=== PATIENT | male | born 1935 | race Asian ===

== ENCOUNTER 2016-10-26 20:27 | Inpatient (IN) | payer MEDICARE, MEDICAID ==
[~2016-10-26] VITALS: Ht 165.1 cm; Wt 93.0 kg
[2016-10-26] MEDS ORDERED: BACL10TA PO (20:55)
[2016-10-26] MEDS ORDERED: FEBU40TA PO (20:55)
[2016-10-26] MEDS ORDERED: DEXL60CA3 PO (20:55)
[2016-10-26] MEDS ORDERED: ZOLP5TAB7 PO (20:55)
[2016-10-26] MEDS ORDERED: ASPI-991 PO (20:55)
[2016-10-26] MEDS ORDERED: DICL50TA9 PO (20:55)
[2016-10-26] MEDS ORDERED: METO-304 PO (20:55)
[2016-10-26] MEDS ORDERED: CLOP75TA2 PO (20:55)
[2016-10-26] MEDS ORDERED: NITR0.4T SL (20:55)
[2016-10-26] MEDS ORDERED: GABA-532 PO (20:55)
[2016-10-26] MEDS ORDERED: DOXA4TAB3 PO (20:55)
[2016-10-26] MEDS ORDERED: ISOS30TA6 PO (20:55)
[2016-10-26] MEDS ORDERED: OLME1TAB32 PO (20:55)
[2016-10-26 20:57] LABS: BASOPHILS % (AUTO) 0.5 % (0.0-2.0); DIFF TOTAL % 100 %; EOSINOPHILS # (AUTO) 0.3 /CMM (0.0-0.7); EOSINOPHILS % (AUTO) 4.9 % (0.0-6.0); HEMATOCRIT 31 % (39-51); HEMOGLOBIN 10.4 g/dL (13.5-17.5); LYMPHOCYTES # (AUTO) 0.8 /CMM (0.8-4.8); LYMPHOCYTES % (AUTO) 13.6 % (20.0-44.0); MEAN CORPUSCULAR HEMOGLOBIN 33 PG (26.0-33.0); MEAN CORPUSCULAR HGB CONC 34 g/dl (31.0-36.0); MEAN CORPUSCULAR VOLUME 98 fL (80-96); MONOCYTES # (AUTO) 0.6 /CMM (0.1-1.30); MONOCYTES % (AUTO) 9.7 % (2.0-12.0); NEUTROPHILS # (AUTO) 4.2 /CMM (1.8-8.9); NEUTROPHILS % (AUTO) 71.3 % (43.0-81.0); PLATELET COUNT (AUTO) 168 /CMM (150-450); RED BLOOD CELL COUNT(AUTO) 3.14 MIL/uL (4.5-6.0); WHITE BLOOD COUNT (AUTO) 5.9 K/uL (4.3-11.0)
[2016-10-26] MEDS ORDERED: IV NS 0.9% 1,000 ML BAG IV ONE (21:00)
[2016-10-26] MEDS ORDERED: IV SET PRIMARY 1 EA INFUS.SET MC ONE (21:11)
[2016-10-26] MEDS ORDERED: IV NS 0.9% 1,000 ML ONE (21:11)
[2016-10-26 21:13] LABS: ALBUMIN 3.3 g/dL (3.4-5.0); BILIRUBIN,DIRECT 0.1 mg/dL (0.0-0.2); BILIRUBIN,TOTAL 0.4 mg/dL (0.2-1.0); CALCIUM, SERUM 8.3 mg/dL (8.5-10.1); INDIRECT BILIRUBIN 0.3 mg/dL (0.0-1.1); POTASSIUM 4.3 mmol/L (3.5-5.1); TOTAL PROTEIN, SERUM 6.7 g/dL (6.4-8.2)
[2016-10-26 21:15] LABS: INR 0.93 (0.87-1.13); PROTHROMBIN TIME 9.8 SECS (9.5-12.7); TROPONIN I 0.19 ng/mL (0.00-0.056)
[2016-10-26] MEDS ORDERED: ASPIRIN 325 MG TABLET ONE (21:45)
[2016-10-26] MEDS ORDERED: ASPIRIN 325 MG TABLET PO ONE (22:00)
[2016-10-26 22:29] LABS: KETONES,URINE NEGATIVE (NEGATIVE); LEUKOCYTE ESTERASE ,URINE NEGATIVE (NEGATIVE); PH,URINE 5.5 (5.0-8.0)
[2016-10-26 22:46] LABS: ADD UA MICROSCOPIC YES
[2016-10-26 22:48] LABS: ADD URINE CULTURE NO; RBC,URINE NONE SEEN /HPF (0-2); WBC,URINE NONE SEEN /HPF (0-3)
[2016-10-27] VITALS (19 sets, daily range): BP systolic 66–161; BP diastolic 57–87
[2016-10-27] MEDS ORDERED: ZOLPIDEM TARTRATE 5 MG TABLET PO PRN (02:00)
[2016-10-27] MEDS ORDERED: Z GUARD REMEDY 2 OZ OINT TP PRN (02:00)
[2016-10-27] MEDS ORDERED: IV NS 0.9% 1,000 ML BAG IV ONE (02:00)
[2016-10-27] MEDS ORDERED: HYDROCODONE/APAP 5/325MG 1 EACH TABLET PO PRN (02:00)
[2016-10-27] MEDS ORDERED: ACETAMINOPHEN 325 MG TABLET PO PRN (02:00)
[2016-10-27] MEDS ORDERED: MAG HYDROX/AL HYDROX/SIMETH 30 ML UDC PO PRN (02:00)
[2016-10-27] MEDS ORDERED: MAGNESIUM HYDROXIDE 30 ML UDC PO PRN (02:00)
[2016-10-27] MEDS ORDERED: IV SET PRIMARY PUMP SET 1 EA INFUS.SET MC ONE ×4 (05:58→22:31)
[2016-10-27] MEDS ORDERED: IV NS 0.9% 1,000 ML ONE (05:58)
[2016-10-27] MEDS ORDERED: IV NS 0.9% 1,000 ML IV PRN (12:30)
[2016-10-27 12:53] LABS: THYROID STIMULATING HORMONE 0.66 uIU/mL (0.358-3.74)
[2016-10-27] MEDS: ATORVASTATIN 10 MG TABLET PO SCH (13:09)
[2016-10-27] MEDS: CARVEDILOL 3.125 MG TABLET PO SCH ×2 (13:10→22:06)
[2016-10-27] MEDS: LORAZEPAM INJ 2 MG/ML VIAL IV PRN ×2 (16:20→19:37)
[2016-10-27 16:21] LABS: CREATININE, URINE 77.5 MG/DL (30.0-125.0); URINE TOTAL PROTEIN 53.5 mg/dL (0-11.9)
[2016-10-27 16:22] LABS: KETONES,URINE NEGATIVE (NEGATIVE); LEUKOCYTE ESTERASE ,URINE NEGATIVE (NEGATIVE)
[2016-10-27 16:31] LABS: ADD UA MICROSCOPIC YES
[2016-10-27 16:42] LABS: ADD URINE CULTURE NO; WBC,URINE NONE SEEN /HPF (0-3)
[2016-10-27 17:48] LABS: ABG BASE EXCESS -11.4 mmol/L; ABG HCO3 19.4 mmol/L; ABG PO2 157.6 mmHg (75.0-100.0); ABG TOTAL HEMOGLOBIN 11.4 G/dL (13.5-18.0); AaDO2 339.3 mmHg
[2016-10-27] MEDS ORDERED: SUCCINYLCHOLINE CHLORIDE 20 MG/ML VIAL IV ONE (18:00)
[2016-10-27] MEDS ORDERED: ETOMIDATE 2 MG/ML VIAL IV ONE (18:00)
[2016-10-27] MEDS: PROPOFOL 100 ML IV PRN ×2 (18:32→22:59)
[2016-10-27] MEDS: methylPREDNISolone SOD SUCC 125 MG/2ML VIAL IV SCH ×2 (19:01→23:27)
[2016-10-27 19:55] LABS: BASOPHILS # (AUTO) 0.1 /CMM (0.0-0.2); BASOPHILS % (AUTO) 0.6 % (0.0-2.0); DIFF TOTAL % 100 %; EOSINOPHILS # (AUTO) 0.2 /CMM (0.0-0.7); EOSINOPHILS % (AUTO) 1.6 % (0.0-6.0); HEMATOCRIT 33 % (39-51); HEMOGLOBIN 10.9 g/dL (13.5-17.5); LYMPHOCYTES # (AUTO) 0.4 /CMM (0.8-4.8); LYMPHOCYTES % (AUTO) 3.8 % (20.0-44.0); MEAN CORPUSCULAR HEMOGLOBIN 33 PG (26.0-33.0); MEAN CORPUSCULAR HGB CONC 33 g/dl (31.0-36.0); MEAN CORPUSCULAR VOLUME 100 fL (80-96); MONOCYTES # (AUTO) 0.5 /CMM (0.1-1.30); MONOCYTES % (AUTO) 4.6 % (2.0-12.0); NEUTROPHILS # (AUTO) 8.6 /CMM (1.8-8.9); NEUTROPHILS % (AUTO) 89.4 % (43.0-81.0); PLATELET COUNT (AUTO) 160 /CMM (150-450); RED BLOOD CELL COUNT(AUTO) 3.28 MIL/uL (4.5-6.0); WHITE BLOOD COUNT (AUTO) 9.8 K/uL (4.3-11.0)
[2016-10-27] MEDS: IPRATROPIUM NEB FS 0.5 MG/2.5 ML AMPUL.NEB NEB SCH ×2 (20:09→23:27)
[2016-10-27] MEDS: ALBUTEROL FS 2.5 MG/0.5 ML VIAL.NEB NEB SCH ×2 (20:09→23:27)
[2016-10-27 20:20] LABS: CALCIUM, SERUM 8.1 mg/dL (8.5-10.1); CREATININE 2.6 mg/dL (0.6-1.3); POTASSIUM 5.4 mmol/L (3.5-5.1)
[2016-10-27 20:28] LABS: TROPONIN I 0.162 ng/mL (0.00-0.056)
[2016-10-27 20:30] LABS: LACTIC ACID 0.8 mmol/L (0.4-2.0)
[2016-10-27] MEDS ORDERED: IV NS 0.9% 1,000 ML IV ONE (21:00)
[2016-10-27] MEDS ORDERED: IV NS 0.9% 500 ML IV ONE (21:30)
[2016-10-27] MEDS ORDERED: IV NS 0.9% 1,000 ML IV SCH (22:00)
[2016-10-28] VITALS (50 sets, daily range): BP systolic 100–149; BP diastolic 51–77
[2016-10-28] MEDS: IPRATROPIUM NEB FS 0.5 MG/2.5 ML AMPUL.NEB NEB SCH ×6 (02:44→23:51)
[2016-10-28] MEDS: ALBUTEROL FS 2.5 MG/0.5 ML VIAL.NEB NEB SCH ×6 (02:44→23:51)
[2016-10-28] MEDS: PROPOFOL 100 ML IV PRN ×4 (03:40→18:34)
[2016-10-28 05:01] LABS: BASOPHILS % (AUTO) 0.1 % (0.0-2.0); DIFF TOTAL % 100 %; HEMATOCRIT 30 % (39-51); HEMOGLOBIN 9.9 g/dL (13.5-17.5); LYMPHOCYTES # (AUTO) 0.3 /CMM (0.8-4.8); LYMPHOCYTES % (AUTO) 4.3 % (20.0-44.0); MEAN CORPUSCULAR HEMOGLOBIN 33 PG (26.0-33.0); MEAN CORPUSCULAR HGB CONC 33 g/dl (31.0-36.0); MEAN CORPUSCULAR VOLUME 100 fL (80-96); MONOCYTES % (AUTO) 0.2 % (2.0-12.0); NEUTROPHILS # (AUTO) 6.3 /CMM (1.8-8.9); NEUTROPHILS % (AUTO) 95.4 % (43.0-81.0); PLATELET COUNT (AUTO) 149 /CMM (150-450); RED BLOOD CELL COUNT(AUTO) 3.03 MIL/uL (4.5-6.0); WHITE BLOOD COUNT (AUTO) 6.6 K/uL (4.3-11.0)
[2016-10-28 05:16] LABS: BILIRUBIN,TOTAL 0.4 mg/dL (0.2-1.0); CREATININE 2.6 mg/dL (0.6-1.3); POTASSIUM 5.3 mmol/L (3.5-5.1); TOTAL PROTEIN, SERUM 6.2 g/dL (6.4-8.2)
[2016-10-28] MEDS: methylPREDNISolone SOD SUCC 125 MG/2ML VIAL IV SCH ×3 (05:33→17:22)
[2016-10-28] MEDS ORDERED: IV NS 0.9% 1,000 ML ONE (07:05)
[2016-10-28] MEDS: ATORVASTATIN 10 MG TABLET PO SCH (08:04)
[2016-10-28] MEDS: IV NS 0.9% 1,000 ML IV PRN ×2 (08:05→16:27)
[2016-10-28] MEDS ORDERED: IV SET PRIMARY PUMP SET 1 EA INFUS.SET MC ONE ×2 (08:18→19:35)
[2016-10-28 08:46] LABS: ABG BASE EXCESS -8.6 mmol/L; ABG HCO3 15.8 mmol/L; ABG PCO2 29.1 mmHg (35.0-45.0); ABG PH 7.352 (7.350-7.450); ABG TOTAL HEMOGLOBIN 10.9 G/dL (13.5-18.0); ALLEN TEST Pass; AaDO2 148.7 mmHg; O2Hb 95.9 % (94.0-97.0)
[2016-10-28] MEDS ORDERED: PIPERACILLIN /TAZOBACTAM 3.375 G in IV D5W 50 ML IV SCH (09:30)
[2016-10-28] MEDS ORDERED: SECONDARY IV SET 1 EA INFUS.SET MC ONE (10:31)
[2016-10-28] MEDS: PIPERACILLIN /TAZOBACTAM 2.25 G in IV D5W 50 ML IV SCH ×2 (10:37→18:00)
[2016-10-28 10:53] LABS: LACTIC ACID 1.6 mmol/L (0.4-2.0)
[2016-10-28 10:55] LABS: SALICYLATE 1.6 mg/dL (2.8-20.0)
[2016-10-28] MEDS: RENAL NOVASOURCE 1,000 ML BOTTLE GT PRN (13:08)
[2016-10-28] MEDS ORDERED: methylPREDNISolone SOD SUCC 125 MG/2ML VIAL IV SCH (18:00)
[2016-10-28 21:53] LABS: KETONES,URINE NEGATIVE (NEGATIVE); LEUKOCYTE ESTERASE ,URINE NEGATIVE (NEGATIVE)
[2016-10-28 21:55] LABS: ADD UA MICROSCOPIC YES
[2016-10-28 22:19] LABS: ADD URINE CULTURE NO; RBC,URINE 0-2 /HPF (0-2); WBC,URINE 0-2 /HPF (0-3)
[2016-10-29] VITALS (52 sets, daily range): BP systolic 115–136; BP diastolic 58–83
[2016-10-29] MEDS: PIPERACILLIN /TAZOBACTAM 2.25 G in IV D5W 50 ML IV SCH ×5 (00:02→23:23)
[2016-10-29] MEDS: PROPOFOL 100 ML IV PRN ×6 (00:02→23:29)
[2016-10-29] MEDS: methylPREDNISolone SOD SUCC 125 MG/2ML VIAL IV SCH ×5 (00:04→23:23)
[2016-10-29] MEDS: IPRATROPIUM NEB FS 0.5 MG/2.5 ML AMPUL.NEB NEB SCH ×5 (04:06→20:16)
[2016-10-29] MEDS: ALBUTEROL FS 2.5 MG/0.5 ML VIAL.NEB NEB SCH ×5 (04:06→20:16)
[2016-10-29 04:46] LABS: BASOPHILS # (AUTO) 0.1 /CMM (0.0-0.2); BASOPHILS % (AUTO) 0.7 % (0.0-2.0); DIFF TOTAL % 100 %; HEMATOCRIT 29 % (39-51); HEMOGLOBIN 9.6 g/dL (13.5-17.5); LYMPHOCYTES # (AUTO) 0.2 /CMM (0.8-4.8); LYMPHOCYTES % (AUTO) 1.9 % (20.0-44.0); MEAN CORPUSCULAR HEMOGLOBIN 33 PG (26.0-33.0); MEAN CORPUSCULAR HGB CONC 33 g/dl (31.0-36.0); MEAN CORPUSCULAR VOLUME 99 fL (80-96); MONOCYTES # (AUTO) 0.1 /CMM (0.1-1.30); MONOCYTES % (AUTO) 1.2 % (2.0-12.0); NEUTROPHILS # (AUTO) 10.2 /CMM (1.8-8.9); NEUTROPHILS % (AUTO) 96.2 % (43.0-81.0); PLATELET COUNT (AUTO) 143 /CMM (150-450); WHITE BLOOD COUNT (AUTO) 10.6 K/uL (4.3-11.0)
[2016-10-29 05:08] LABS: ALBUMIN 2.7 g/dL (3.4-5.0); BILIRUBIN,TOTAL 0.3 mg/dL (0.2-1.0); CALCIUM, SERUM 7.6 mg/dL (8.5-10.1); CREATININE 2.6 mg/dL (0.6-1.3); PHOSPHORUS 3.7 mg/dL (2.5-4.9); POTASSIUM 4.7 mmol/L (3.5-5.1); TOTAL PROTEIN, SERUM 5.7 g/dL (6.4-8.2)
[2016-10-29] MEDS: PANTOPRAZOLE 40 MG/PACK PACK NG SCH (08:53)
[2016-10-29] MEDS: ATORVASTATIN 10 MG TABLET PO SCH (08:53)
[2016-10-29] MEDS ORDERED: PANTOPRAZOLE 40 MG VIAL IV SCH (09:00)
[2016-10-29] MEDS ORDERED: IV SET PRIMARY PUMP SET 1 EA INFUS.SET MC ONE ×2 (09:32→20:16)
[2016-10-29] MEDS ORDERED: IV NS 0.9% 250 ML IV ONE (17:28)
[2016-10-29] MEDS: RENAL NOVASOURCE 1,000 ML BOTTLE GT PRN (17:40)
[2016-10-30] VITALS (31 sets, daily range): BP systolic 128–151; BP diastolic 56–83
[2016-10-30] MEDS: IPRATROPIUM NEB FS 0.5 MG/2.5 ML AMPUL.NEB NEB SCH ×7 (00:22→23:39)
[2016-10-30] MEDS: ALBUTEROL FS 2.5 MG/0.5 ML VIAL.NEB NEB SCH ×7 (00:22→23:38)
[2016-10-30] MEDS: PROPOFOL 100 ML IV PRN ×2 (03:48→07:11)
[2016-10-30] MEDS: ONDANSETRON HCL/PF 4 MG/2 ML VIAL IVP PRN (04:38)
[2016-10-30 04:53] LABS: DIFF TOTAL % 100 %; HEMATOCRIT 31 % (39-51); HEMOGLOBIN 10.2 g/dL (13.5-17.5); LYMPHOCYTES # (AUTO) 0.2 /CMM (0.8-4.8); LYMPHOCYTES % (AUTO) 1.7 % (20.0-44.0); MEAN CORPUSCULAR HEMOGLOBIN 33 PG (26.0-33.0); MEAN CORPUSCULAR HGB CONC 33 g/dl (31.0-36.0); MEAN CORPUSCULAR VOLUME 100 fL (80-96); MONOCYTES # (AUTO) 0.2 /CMM (0.1-1.30); MONOCYTES % (AUTO) 1.7 % (2.0-12.0); NEUTROPHILS # (AUTO) 10.6 /CMM (1.8-8.9); NEUTROPHILS % (AUTO) 96.6 % (43.0-81.0); PLATELET COUNT (AUTO) 131 /CMM (150-450); RED BLOOD CELL COUNT(AUTO) 3.07 MIL/uL (4.5-6.0)
[2016-10-30 05:09] LABS: CALCIUM, SERUM 7.7 mg/dL (8.5-10.1); CREATININE 2.5 mg/dL (0.6-1.3); POTASSIUM 3.9 mmol/L (3.5-5.1)
[2016-10-30] MEDS: methylPREDNISolone SOD SUCC 125 MG/2ML VIAL IV SCH ×4 (05:10→23:49)
[2016-10-30] MEDS: PIPERACILLIN /TAZOBACTAM 2.25 G in IV D5W 50 ML IV SCH ×4 (05:10→23:31)
[2016-10-30] MEDS ORDERED: DC PROPOFOL WHEN EXTUBATED XX PRN (08:00)
[2016-10-30] MEDS: ATORVASTATIN 10 MG TABLET PO SCH (08:31)
[2016-10-30] MEDS: PANTOPRAZOLE 40 MG/PACK PACK NG SCH (08:31)
[2016-10-30 09:31] LABS: ABG BASE EXCESS -6.5 mmol/L; ABG HCO3 17.4 mmol/L; ABG PCO2 29.6 mmHg (35.0-45.0); ABG PH 7.388 (7.350-7.450); ABG PO2 164.7 mmHg (75.0-100.0); ALLEN TEST Pass; AaDO2 86.5 mmHg; O2Hb 97.1 % (94.0-97.0)
[2016-10-30 14:14] LABS: *SPE ALBUMIN 3.3 g/dL (2.9-4.4)
[2016-10-30] MEDS ORDERED: NITROGLYCERIN 0.4 MG/TAB BOTTLE SL PRN (16:00)
[2016-10-30] MEDS ORDERED: DICLOFENAC SODIUM 50 MG TABLET.DR PO SCH (17:00)
[2016-10-30] MEDS ORDERED: GABAPENTIN 100 MG CAPSULE PO SCH (17:00)
[2016-10-30] MEDS ORDERED: IV NS 0.9% 250 ML IV ONE (20:56)
[2016-10-30] MEDS ORDERED: BACLOFEN (10 MG) 10 MG TABLET PO SCH (22:00)
[2016-10-30] MEDS ORDERED: DOXAZOSIN MESYLATE (4 MG) 4 MG TABLET PO SCH (22:00)
[2016-10-30] MEDS ORDERED: ZOLPIDEM TARTRATE 5 MG TABLET PO SCH (22:00)
[2016-10-30] MEDS ORDERED: ATORVASTATIN 10 MG TABLET NG SCH (23:00)
[2016-10-30] MEDS ORDERED: ACETAMINOPHEN 650 MG/20 ML UDC- FOR SA PATIENTS ONLY NG PRN (23:00)
[2016-10-30] MEDS ORDERED: PANTOPRAZOLE 40 MG VIAL IV SCH (23:00)
[2016-10-30] MEDS ORDERED: MORPHINE SULFATE INJ 2 MG/ML DISP.SYRIN IV PRN (23:00)
[2016-10-30] MEDS ORDERED: METOPROLOL TARTRATE 25 MG TABLET ONE (23:27)
[2016-10-30] MEDS ORDERED: ACETAMINOPHEN 650 MG/20.3 ML UDC ONE (23:31)
[2016-10-30] MEDS: METOPROLOL TARTRATE 25 MG TABLET PO SCH (23:32)
[2016-10-30] MEDS ORDERED: methylPREDNISolone SOD SUCC 125 MG/2ML VIAL ONE (23:45)
[2016-10-30] MEDS ORDERED: LEVOFLOXACIN 250 MG /D5W 50 ML 0 ML IV ONE (23:49)
[2016-10-30] MEDS ORDERED: LEVOFLOXACIN 250 MG /D5W 50 ML 50 ML IV ONE (23:50)
[2016-10-31] VITALS (25 sets, daily range): BP systolic 132–160; BP diastolic 42–102
[2016-10-31] MEDS ORDERED: SECONDARY IV SET 1 EA INFUS.SET MC ONE (00:04)
[2016-10-31] MEDS: LEVOFLOXACIN 250 MG /D5W 50 ML 250 MG in PREMIX 1 EA IV SCH ×2 (00:04→23:24)
[2016-10-31] MEDS: ALBUTEROL FS 2.5 MG/0.5 ML VIAL.NEB NEB SCH ×5 (04:13→19:55)
[2016-10-31] MEDS: IPRATROPIUM NEB FS 0.5 MG/2.5 ML AMPUL.NEB NEB SCH ×5 (04:13→19:55)
[2016-10-31 05:13] LABS: DIFF TOTAL % 100 %; HEMATOCRIT 32 % (39-51); HEMOGLOBIN 10.5 g/dL (13.5-17.5); LYMPHOCYTES # (AUTO) 0.1 /CMM (0.8-4.8); LYMPHOCYTES % (AUTO) 1.2 % (20.0-44.0); MEAN CORPUSCULAR HEMOGLOBIN 33 PG (26.0-33.0); MEAN CORPUSCULAR HGB CONC 33 g/dl (31.0-36.0); MEAN CORPUSCULAR VOLUME 99 fL (80-96); MONOCYTES # (AUTO) 0.2 /CMM (0.1-1.30); MONOCYTES % (AUTO) 2.1 % (2.0-12.0); NEUTROPHILS # (AUTO) 11.3 /CMM (1.8-8.9); NEUTROPHILS % (AUTO) 96.7 % (43.0-81.0); PLATELET COUNT (AUTO) 122 /CMM (150-450); RED BLOOD CELL COUNT(AUTO) 3.17 MIL/uL (4.5-6.0); TROPONIN I 0.282 ng/mL (0.00-0.056); WHITE BLOOD COUNT (AUTO) 11.7 K/uL (4.3-11.0)
[2016-10-31 05:16] LABS: ALBUMIN 2.7 g/dL (3.4-5.0); BILIRUBIN,TOTAL 0.3 mg/dL (0.2-1.0); CALCIUM, SERUM 7.8 mg/dL (8.5-10.1); CREATININE 2.7 mg/dL (0.6-1.3); PHOSPHORUS 4.2 mg/dL (2.5-4.9); POTASSIUM 3.9 mmol/L (3.5-5.1); TOTAL PROTEIN, SERUM 5.6 g/dL (6.4-8.2)
[2016-10-31] MEDS ORDERED: methylPREDNISolone SOD SUCC 125 MG/2ML VIAL ONE (05:24)
[2016-10-31] MEDS: PIPERACILLIN /TAZOBACTAM 2.25 G in IV D5W 50 ML IV SCH ×4 (05:25→23:28)
[2016-10-31] MEDS: methylPREDNISolone SOD SUCC 125 MG/2ML VIAL IV SCH ×4 (05:28→23:27)
[2016-10-31] MEDS: CLOPIDOGREL BISULFATE 75 MG TABLET PO SCH (08:36)
[2016-10-31] MEDS: METOPROLOL TARTRATE 25 MG TABLET PO SCH ×2 (08:37→22:15)
[2016-10-31] MEDS: ASPIRIN 81 MG TAB.CHEW NG SCH (08:37)
[2016-10-31] MEDS ORDERED: CLOPIDOGREL BISULFATE 75 MG TABLET NG SCH (09:00)
[2016-10-31] MEDS ORDERED: DICLOFENAC SODIUM 25 MG TABLET.DR PO SCH (09:00)
[2016-10-31] MEDS ORDERED: METOPROLOL SUCCINATE 50 MG TAB.SR.24H PO SCH (09:00)
[2016-10-31] MEDS ORDERED: ASPIRIN EC 81 MG TABLET.DR PO SCH (09:00)
[2016-10-31] MEDS ORDERED: ISOSORBIDE MONONITRATE (30MG) 30 MG TAB.SR.24H PO SCH (09:00)
[2016-10-31] MEDS ORDERED: FUROSEMIDE 20 MG/2 ML VIAL IV SCH (09:00)
[2016-10-31 11:16] LABS: PTH, INTACT 119 pg/mL (15-65)
[2016-10-31] MEDS: ACETYLCYSTEINE 10% SOLN 400 MG/4 ML VIAL NEB SCH ×2 (17:29→23:50)
[2016-10-31] MEDS: ACETAMINOPHEN 650 MG/20.3 ML UDC NG PRN (23:25)
[2016-10-31] MEDS: ONDANSETRON HCL/PF 4 MG/2 ML VIAL IVP PRN (23:25)
[2016-11-01] VITALS (37 sets, daily range): BP systolic 90–175; BP diastolic 30–112
[2016-11-01] MEDS: IPRATROPIUM NEB FS 0.5 MG/2.5 ML AMPUL.NEB NEB SCH ×7 (00:51→22:53)
[2016-11-01] MEDS: ALBUTEROL FS 2.5 MG/0.5 ML VIAL.NEB NEB SCH ×3 (00:51→08:16)
[2016-11-01] MEDS ORDERED: LORAZEPAM INJ 2 MG/ML VIAL ONE (01:09)
[2016-11-01] MEDS: LORAZEPAM INJ 2 MG/ML VIAL IV PRN (01:17)
[2016-11-01 01:31] LABS: ABG BASE EXCESS -10.7 mmol/L; ABG HCO3 18.1 mmol/L; ABG PCO2 52.9 mmHg (35.0-45.0); ABG PH 7.152 (7.350-7.450); ABG PO2 104.4 mmHg (75.0-100.0); ALLEN TEST Pass; O2Hb 94.1 % (94.0-97.0)
[2016-11-01 04:47] LABS: ABG BASE EXCESS -7.6 mmol/L; ABG HCO3 20.1 mmol/L; ABG PCO2 50.4 mmHg (35.0-45.0); ABG PH 7.219 (7.350-7.450); ABG PO2 92.5 mmHg (75.0-100.0); ABG TOTAL HEMOGLOBIN 11.9 G/dL (13.5-18.0); ALLEN TEST Pass; AaDO2 134.7 mmHg
[2016-11-01 05:14] LABS: CALCIUM, SERUM 8.1 mg/dL (8.5-10.1); CREATININE 2.5 mg/dL (0.6-1.3); POTASSIUM 5.1 mmol/L (3.5-5.1)
[2016-11-01 05:38] LABS: TROPONIN I 0.698 ng/mL (0.00-0.056)
[2016-11-01] MEDS: PIPERACILLIN /TAZOBACTAM 2.25 G in IV D5W 50 ML IV SCH ×3 (05:43→17:29)
[2016-11-01] MEDS: methylPREDNISolone SOD SUCC 125 MG/2ML VIAL IV SCH ×3 (05:44→17:29)
[2016-11-01 06:34] LABS: DIFF TOTAL % 100 %; HEMATOCRIT 34 % (39-51); HEMOGLOBIN 11.3 g/dL (13.5-17.5); LYMPHOCYTES # (AUTO) 0.1 /CMM (0.8-4.8); LYMPHOCYTES % (AUTO) 0.8 % (20.0-44.0); MEAN CORPUSCULAR HEMOGLOBIN 33 PG (26.0-33.0); MEAN CORPUSCULAR HGB CONC 33 g/dl (31.0-36.0); MEAN CORPUSCULAR VOLUME 100 fL (80-96); MONOCYTES # (AUTO) 0.2 /CMM (0.1-1.30); MONOCYTES % (AUTO) 1.6 % (2.0-12.0); NEUTROPHILS # (AUTO) 11.9 /CMM (1.8-8.9); NEUTROPHILS % (AUTO) 97.6 % (43.0-81.0); PLATELET COUNT (AUTO) 117 /CMM (150-450); RED BLOOD CELL COUNT(AUTO) 3.44 MIL/uL (4.5-6.0); WHITE BLOOD COUNT (AUTO) 12.2 K/uL (4.3-11.0)
[2016-11-01] MEDS ORDERED: IV SET PRIMARY PUMP SET 1 EA INFUS.SET MC ONE (07:03)
[2016-11-01] MEDS ORDERED: BUMETANIDE INJ 8 MG in IV NS 0.9% 48 ML IV ONE (07:30)
[2016-11-01] MEDS ORDERED: AMIODARONE 900 MG in IV D5W 482 ML IV PRN (07:30)
[2016-11-01] MEDS ORDERED: AMIODARONE 150 MG in IV D5W 100 ML IV ONE (07:30)
[2016-11-01] MEDS: ACETYLCYSTEINE 10% SOLN 400 MG/4 ML VIAL NEB SCH ×3 (08:16→22:53)
[2016-11-01] MEDS ORDERED: SUCCINYLCHOLINE CHLORIDE 20 MG/ML VIAL IV ONE (08:30)
[2016-11-01] MEDS ORDERED: ETOMIDATE 2 MG/ML VIAL IV ONE (08:30)
[2016-11-01] MEDS: PROPOFOL 100 ML IV PRN ×4 (08:56→21:54)
[2016-11-01] MEDS ORDERED: ROCURONIUM BROMIDE 50 MG/5 ML ONE (09:05)
[2016-11-01] MEDS: ASPIRIN 81 MG TAB.CHEW NG SCH (09:07)
[2016-11-01] MEDS: CLOPIDOGREL BISULFATE 75 MG TABLET PO SCH (09:08)
[2016-11-01 10:05] LABS: ABG BASE EXCESS -9.3 mmol/L; ABG HCO3 18.1 mmol/L; ABG PCO2 45.7 mmHg (35.0-45.0); ABG PH 7.216 (7.350-7.450); ABG PO2 171.5 mmHg (75.0-100.0); ABG TOTAL HEMOGLOBIN 11.5 G/dL (13.5-18.0); O2Hb 97.2 % (94.0-97.0)
[2016-11-01 14:49] LABS: ABG HCO3 17.3 mmol/L; ABG PCO2 30.7 mmHg (35.0-45.0); ABG PH 7.368 (7.350-7.450); ABG PO2 131.7 mmHg (75.0-100.0); ABG TOTAL HEMOGLOBIN 11.1 G/dL (13.5-18.0); ALLEN TEST Pass; AaDO2 118.2 mmHg; O2Hb 96.5 % (94.0-97.0)
[2016-11-01] MEDS: IV NS 0.9% 250 ML IV PRN (22:03)
[2016-11-01] MEDS: LEVOFLOXACIN 250 MG /D5W 50 ML 250 MG in PREMIX 1 EA IV SCH (22:24)
[2016-11-02] VITALS (38 sets, daily range): BP systolic 110–144; BP diastolic 58–91
[2016-11-02] MEDS: methylPREDNISolone SOD SUCC 125 MG/2ML VIAL IV SCH ×4 (00:08→17:53)
[2016-11-02] MEDS: PIPERACILLIN /TAZOBACTAM 2.25 G in IV D5W 50 ML IV SCH ×4 (00:08→17:53)
[2016-11-02] MEDS: PROPOFOL 100 ML IV PRN ×4 (02:19→20:04)
[2016-11-02] MEDS: IPRATROPIUM NEB FS 0.5 MG/2.5 ML AMPUL.NEB NEB SCH ×6 (03:11→23:19)
[2016-11-02 05:34] LABS: BASOPHILS % (AUTO) 0.1 % (0.0-2.0); DIFF TOTAL % 100 %; HEMATOCRIT 35 % (39-51); HEMOGLOBIN 11.4 g/dL (13.5-17.5); LYMPHOCYTES # (AUTO) 0.3 /CMM (0.8-4.8); LYMPHOCYTES % (AUTO) 4.6 % (20.0-44.0); MEAN CORPUSCULAR HEMOGLOBIN 33 PG (26.0-33.0); MEAN CORPUSCULAR HGB CONC 33 g/dl (31.0-36.0); MEAN CORPUSCULAR VOLUME 100 fL (80-96); MONOCYTES # (AUTO) 0.2 /CMM (0.1-1.30); MONOCYTES % (AUTO) 3.6 % (2.0-12.0); NEUTROPHILS # (AUTO) 5.5 /CMM (1.8-8.9); NEUTROPHILS % (AUTO) 91.7 % (43.0-81.0); PLATELET COUNT (AUTO) 118 /CMM (150-450); RED BLOOD CELL COUNT(AUTO) 3.47 MIL/uL (4.5-6.0)
[2016-11-02 05:38] LABS: ALBUMIN 2.8 g/dL (3.4-5.0); BILIRUBIN,TOTAL 0.5 mg/dL (0.2-1.0); CALCIUM, SERUM 8.5 mg/dL (8.5-10.1); CREATININE 3.2 mg/dL (0.6-1.3); PHOSPHORUS 4.5 mg/dL (2.5-4.9); POTASSIUM 3.8 mmol/L (3.5-5.1); TOTAL PROTEIN, SERUM 5.6 g/dL (6.4-8.2)
[2016-11-02 05:43] LABS: TROPONIN I 4.87 ng/mL (0.00-0.056)
[2016-11-02] MEDS: RENAL NOVASOURCE 1,000 ML BOTTLE GT PRN (06:29)
[2016-11-02] MEDS: ACETYLCYSTEINE 10% SOLN 400 MG/4 ML VIAL NEB SCH ×3 (07:26→23:19)
[2016-11-02] MEDS: ASPIRIN 81 MG TAB.CHEW NG SCH (08:30)
[2016-11-02] MEDS: CLOPIDOGREL BISULFATE 75 MG TABLET PO SCH (08:30)
[2016-11-02 09:20] LABS: ABG BASE EXCESS -3.8 mmol/L; ABG HCO3 18.4 mmol/L; ABG PCO2 25.1 mmHg (35.0-45.0); ABG PH 7.482 (7.350-7.450); ABG TOTAL HEMOGLOBIN 11.4 G/dL (13.5-18.0); ALLEN TEST Pass; O2Hb 96.2 % (94.0-97.0)
[2016-11-02] MEDS ORDERED: SECONDARY IV SET 1 EA INFUS.SET MC ONE (11:54)
[2016-11-02] MEDS: HEPARIN SODIUM, PORCINE 5000 UNITS/1 ML VIAL SQ SCH (15:10)
[2016-11-02] MEDS ORDERED: LEVOFLOXACIN (750 MG) 750 MG TABLET ONE (21:40)
[2016-11-02] MEDS: LEVOFLOXACIN (250MG) 250 MG TABLET PO SCH (22:02)
[2016-11-03] VITALS (56 sets, daily range): BP systolic 79–156; BP diastolic 48–102
[2016-11-03] MEDS: methylPREDNISolone SOD SUCC 125 MG/2ML VIAL IV SCH ×3 (00:24→20:44)
[2016-11-03] MEDS: PIPERACILLIN /TAZOBACTAM 2.25 G in IV D5W 50 ML IV SCH ×4 (00:24→18:02)
[2016-11-03] MEDS ORDERED: IV SET PRIMARY PUMP SET 1 EA INFUS.SET MC ONE ×3 (03:36→20:37)
[2016-11-03] MEDS: RENAL NOVASOURCE 1,000 ML BOTTLE GT PRN (03:45)
[2016-11-03] MEDS: PROPOFOL 100 ML IV PRN ×5 (03:45→23:00)
[2016-11-03] MEDS: IV NS 0.9% 250 ML IV PRN (03:45)
[2016-11-03] MEDS: IPRATROPIUM NEB FS 0.5 MG/2.5 ML AMPUL.NEB NEB SCH ×6 (03:57→23:10)
[2016-11-03 04:54] LABS: DIFF TOTAL % 100 %; HEMATOCRIT 32 % (39-51); HEMOGLOBIN 10.9 g/dL (13.5-17.5); LYMPHOCYTES # (AUTO) 0.2 /CMM (0.8-4.8); LYMPHOCYTES % (AUTO) 2.2 % (20.0-44.0); MEAN CORPUSCULAR HEMOGLOBIN 34 PG (26.0-33.0); MEAN CORPUSCULAR HGB CONC 35 g/dl (31.0-36.0); MEAN CORPUSCULAR VOLUME 98 fL (80-96); MONOCYTES # (AUTO) 0.4 /CMM (0.1-1.30); MONOCYTES % (AUTO) 4.1 % (2.0-12.0); NEUTROPHILS % (AUTO) 93.7 % (43.0-81.0); PLATELET COUNT (AUTO) 317 /CMM (150-450); RED BLOOD CELL COUNT(AUTO) 3.23 MIL/uL (4.5-6.0); WHITE BLOOD COUNT (AUTO) 9.6 K/uL (4.3-11.0)
[2016-11-03 05:41] LABS: CALCIUM, SERUM 8.4 mg/dL (8.5-10.1); PHOSPHORUS 4.9 mg/dL (2.5-4.9); POTASSIUM 3.8 mmol/L (3.5-5.1)
[2016-11-03] MEDS: ACETYLCYSTEINE 10% SOLN 400 MG/4 ML VIAL NEB SCH ×3 (07:45→23:10)
[2016-11-03] MEDS: ASPIRIN 81 MG TAB.CHEW NG SCH (09:16)
[2016-11-03] MEDS: CLOPIDOGREL BISULFATE 75 MG TABLET PO SCH (09:16)
[2016-11-03] MEDS: AMIODARONE HCL 200 MG TABLET GT SCH ×3 (09:16→20:44)
[2016-11-03] MEDS: HEPARIN SODIUM, PORCINE 5000 UNITS/1 ML VIAL SQ SCH ×2 (09:17→20:48)
[2016-11-03] MEDS: LEVOFLOXACIN (250MG) 250 MG TABLET PO SCH (20:44)
[2016-11-04] VITALS (46 sets, daily range): BP systolic 82–139; BP diastolic 55–101
[2016-11-04] MEDS: PIPERACILLIN /TAZOBACTAM 2.25 G in IV D5W 50 ML IV SCH ×4 (00:27→17:33)
[2016-11-04] MEDS: PROPOFOL 100 ML IV PRN ×5 (02:22→22:11)
[2016-11-04] MEDS: RENAL NOVASOURCE 1,000 ML BOTTLE GT PRN (02:22)
[2016-11-04] MEDS: IV NS 0.9% 250 ML IV PRN (02:23)
[2016-11-04] MEDS: IPRATROPIUM NEB FS 0.5 MG/2.5 ML AMPUL.NEB NEB SCH ×6 (03:25→23:07)
[2016-11-04 05:27] LABS: DIFF TOTAL % 100 %; EOSINOPHILS % (AUTO) 0.3 % (0.0-6.0); HEMATOCRIT 34 % (39-51); HEMOGLOBIN 11.6 g/dL (13.5-17.5); LYMPHOCYTES # (AUTO) 0.2 /CMM (0.8-4.8); LYMPHOCYTES % (AUTO) 2.1 % (20.0-44.0); MEAN CORPUSCULAR HEMOGLOBIN 33 PG (26.0-33.0); MEAN CORPUSCULAR HGB CONC 34 g/dl (31.0-36.0); MEAN CORPUSCULAR VOLUME 98 fL (80-96); MONOCYTES # (AUTO) 0.5 /CMM (0.1-1.30); MONOCYTES % (AUTO) 4.5 % (2.0-12.0); NEUTROPHILS # (AUTO) 9.4 /CMM (1.8-8.9); NEUTROPHILS % (AUTO) 93.1 % (43.0-81.0); PLATELET COUNT (AUTO) 86 /CMM (150-450); RED BLOOD CELL COUNT(AUTO) 3.49 MIL/uL (4.5-6.0); WHITE BLOOD COUNT (AUTO) 10.1 K/uL (4.3-11.0)
[2016-11-04] MEDS: AMIODARONE HCL 200 MG TABLET GT SCH ×3 (05:42→21:04)
[2016-11-04 05:53] LABS: CALCIUM, SERUM 8.2 mg/dL (8.5-10.1); CREATININE 3.1 mg/dL (0.6-1.3); PHOSPHORUS 4.7 mg/dL (2.5-4.9); POTASSIUM 3.4 mmol/L (3.5-5.1)
[2016-11-04] MEDS: ACETYLCYSTEINE 10% SOLN 400 MG/4 ML VIAL NEB SCH ×3 (08:06→23:07)
[2016-11-04] MEDS: methylPREDNISolone SOD SUCC 125 MG/2ML VIAL IV SCH (08:10)
[2016-11-04] MEDS: HEPARIN SODIUM, PORCINE 5000 UNITS/1 ML VIAL SQ SCH ×2 (08:13→21:06)
[2016-11-04] MEDS: CLOPIDOGREL BISULFATE 75 MG TABLET PO SCH (08:14)
[2016-11-04] MEDS: ASPIRIN 81 MG TAB.CHEW NG SCH (08:14)
[2016-11-04] MEDS ORDERED: POTASSIUM CHLORIDE 20 MEQ POWDER PACKET GT SCH (08:30)
[2016-11-04] MEDS ORDERED: IV SET PRIMARY PUMP SET 1 EA INFUS.SET MC ONE (13:01)
[2016-11-04] MEDS: LEVOFLOXACIN (250MG) 250 MG TABLET PO SCH (21:03)
[2016-11-05] VITALS (53 sets, daily range): BP systolic 108–168; BP diastolic 49–96
[2016-11-05] MEDS: PIPERACILLIN /TAZOBACTAM 2.25 G in IV D5W 50 ML IV SCH ×5 (00:28→23:46)
[2016-11-05] MEDS: IV NS 0.9% 250 ML IV PRN (02:29)
[2016-11-05] MEDS: PROPOFOL 100 ML IV PRN ×2 (02:29→08:19)
[2016-11-05] MEDS: IPRATROPIUM NEB FS 0.5 MG/2.5 ML AMPUL.NEB NEB SCH ×6 (03:31→23:20)
[2016-11-05 05:22] LABS: DIFF TOTAL % 100 %; HEMATOCRIT 35 % (39-51); HEMOGLOBIN 11.5 g/dL (13.5-17.5); LYMPHOCYTES # (AUTO) 0.4 /CMM (0.8-4.8); LYMPHOCYTES % (AUTO) 2.3 % (20.0-44.0); MEAN CORPUSCULAR HEMOGLOBIN 33 PG (26.0-33.0); MEAN CORPUSCULAR HGB CONC 33 g/dl (31.0-36.0); MEAN CORPUSCULAR VOLUME 99 fL (80-96); MONOCYTES # (AUTO) 1.6 /CMM (0.1-1.30); MONOCYTES % (AUTO) 10.2 % (2.0-12.0); NEUTROPHILS % (AUTO) 87.5 % (43.0-81.0); PLATELET COUNT (AUTO) 92 /CMM (150-450); RED BLOOD CELL COUNT(AUTO) 3.51 MIL/uL (4.5-6.0)
[2016-11-05 05:51] LABS: CALCIUM, SERUM 8.2 mg/dL (8.5-10.1); CREATININE 3.3 mg/dL (0.6-1.3); PHOSPHORUS 4.7 mg/dL (2.5-4.9); POTASSIUM 3.8 mmol/L (3.5-5.1)
[2016-11-05] MEDS: AMIODARONE HCL 200 MG TABLET GT SCH (05:57)
[2016-11-05] MEDS: RENAL NOVASOURCE 1,000 ML BOTTLE GT PRN (06:20)
[2016-11-05] MEDS: ACETYLCYSTEINE 10% SOLN 400 MG/4 ML VIAL NEB SCH ×3 (08:07→23:19)
[2016-11-05] MEDS: methylPREDNISolone SOD SUCC 40 MG/ML VIAL IV SCH (08:29)
[2016-11-05] MEDS: ASPIRIN 81 MG TAB.CHEW NG SCH (08:29)
[2016-11-05] MEDS: CLOPIDOGREL BISULFATE 75 MG TABLET PO SCH (08:29)
[2016-11-05] MEDS: HEPARIN SODIUM, PORCINE 5000 UNITS/1 ML VIAL SQ SCH ×2 (08:51→20:47)
[2016-11-05 09:52] LABS: ABG BASE EXCESS -7.1 mmol/L; ABG HCO3 16.1 mmol/L; ABG PCO2 26.5 mmHg (35.0-45.0); ABG PH 7.402 (7.350-7.450); ABG PO2 113.4 mmHg (75.0-100.0); ABG TOTAL HEMOGLOBIN 12.4 G/dL (13.5-18.0); ALLEN TEST Pass; O2Hb 95.9 % (94.0-97.0)
[2016-11-05 11:10] LABS: LYMPHOCYTES % (MANUAL) 1 % (16-48); MYELOCYTES % 2 % (0-0)
[2016-11-05 11:11] LABS: BURR CELLS 1+; HYPOCHROMASIA 1+; PLATELET ESTIMATE DECREASED
[2016-11-05] MEDS ORDERED: IV SET PRIMARY 1 EA INFUS.SET MC ONE (20:37)
[2016-11-05] MEDS: LEVOFLOXACIN (250MG) 250 MG TABLET PO SCH (20:44)
[2016-11-06] VITALS (45 sets, daily range): BP systolic 97–166; BP diastolic 65–102
[2016-11-06] MEDS: PROPOFOL 100 ML IV PRN ×4 (01:41→18:23)
[2016-11-06] MEDS: IV NS 0.9% 250 ML IV PRN (01:44)
[2016-11-06] MEDS: IPRATROPIUM NEB FS 0.5 MG/2.5 ML AMPUL.NEB NEB SCH ×5 (03:07→19:40)
[2016-11-06] MEDS: PIPERACILLIN /TAZOBACTAM 2.25 G in IV D5W 50 ML IV SCH ×4 (05:25→23:27)
[2016-11-06 05:41] LABS: CALCIUM, SERUM 8.6 mg/dL (8.5-10.1); CREATININE 3.3 mg/dL (0.6-1.3); PHOSPHORUS 4.3 mg/dL (2.5-4.9); POTASSIUM 3.5 mmol/L (3.5-5.1)
[2016-11-06 06:06] LABS: INR 0.99 (0.87-1.13); PROTHROMBIN TIME 10.7 SECS (9.5-12.7)
[2016-11-06] MEDS: RENAL NOVASOURCE 1,000 ML BOTTLE GT PRN (06:31)
[2016-11-06] MEDS: ACETYLCYSTEINE 10% SOLN 400 MG/4 ML VIAL NEB SCH ×2 (07:13→15:28)
[2016-11-06] MEDS ORDERED: IV SET PRIMARY PUMP SET 1 EA INFUS.SET MC ONE (07:42)
[2016-11-06] MEDS: methylPREDNISolone SOD SUCC 40 MG/ML VIAL IV SCH (08:28)
[2016-11-06] MEDS: ASPIRIN 81 MG TAB.CHEW NG SCH (08:28)
[2016-11-06] MEDS: HEPARIN SODIUM, PORCINE 5000 UNITS/1 ML VIAL SQ SCH ×2 (08:28→20:41)
[2016-11-06] MEDS: CLOPIDOGREL BISULFATE 75 MG TABLET PO SCH (08:29)
[2016-11-06] MEDS: AMIODARONE HCL 200 MG TABLET GT SCH (08:29)
[2016-11-06] MEDS ORDERED: POTASSIUM CHLORIDE 20 MEQ TAB.PRT.SR PO SCH (09:00)
[2016-11-06] MEDS ORDERED: POTASSIUM CHLORIDE 20 MEQ POWDER PACKET GT ONE ×2 (09:00→09:30)
[2016-11-06 09:01] LABS: ABG BASE EXCESS -5.9 mmol/L; ABG PCO2 26.4 mmHg (35.0-45.0); ABG PH 7.427 (7.350-7.450); ABG PO2 134.2 mmHg (75.0-100.0); ABG TOTAL HEMOGLOBIN 11.9 G/dL (13.5-18.0); AaDO2 34.3 mmHg; O2Hb 96.3 % (94.0-97.0)
[2016-11-06 11:22] LABS: DIFF TOTAL % 100 %; EOSINOPHILS # (AUTO) 0.5 /CMM (0.0-0.7); EOSINOPHILS % (AUTO) 2.8 % (0.0-6.0); HEMATOCRIT 37 % (39-51); HEMOGLOBIN 11.9 g/dL (13.5-17.5); LYMPHOCYTES # (AUTO) 0.4 /CMM (0.8-4.8); LYMPHOCYTES % (AUTO) 2.2 % (20.0-44.0); MEAN CORPUSCULAR HEMOGLOBIN 32 PG (26.0-33.0); MEAN CORPUSCULAR HGB CONC 32 g/dl (31.0-36.0); MEAN CORPUSCULAR VOLUME 99 fL (80-96); MONOCYTES # (AUTO) 1.5 /CMM (0.1-1.30); MONOCYTES % (AUTO) 9.5 % (2.0-12.0); NEUTROPHILS # (AUTO) 13.8 /CMM (1.8-8.9); NEUTROPHILS % (AUTO) 85.5 % (43.0-81.0); PLATELET COUNT (AUTO) 91 /CMM (150-450); RED BLOOD CELL COUNT(AUTO) 3.75 MIL/uL (4.5-6.0); WHITE BLOOD COUNT (AUTO) 16.1 K/uL (4.3-11.0)
[2016-11-06 15:04] LABS: BAND % (MANUAL) 1 % (0.0-5.0); BURR CELLS 1+; EOSINOPHILS % (MANUAL) 3 % (0-4); LYMPHOCYTES % (MANUAL) 3 % (16-48); METAMYELOCYTES % 1 % (0-0); PLATELET ESTIMATE DECREASED; POIKILOCYTOSIS 1+
[2016-11-06 15:05] LABS: SCHISTOCYTES 1+
[2016-11-06] MEDS: LEVOFLOXACIN (250MG) 250 MG TABLET PO SCH (20:46)
[2016-11-07] VITALS (58 sets, daily range): BP systolic 10–183; BP diastolic 57–112
[2016-11-07] MEDS: IPRATROPIUM NEB FS 0.5 MG/2.5 ML AMPUL.NEB NEB SCH ×8 (00:10→23:15)
[2016-11-07] MEDS: ACETYLCYSTEINE 10% SOLN 400 MG/4 ML VIAL NEB SCH ×5 (00:11→23:15)
[2016-11-07] MEDS: PROPOFOL 100 ML IV PRN ×4 (01:00→22:25)
[2016-11-07 05:18] LABS: DIFF TOTAL % 100 %; EOSINOPHILS # (AUTO) 0.2 /CMM (0.0-0.7); EOSINOPHILS % (AUTO) 1.2 % (0.0-6.0); HEMATOCRIT 37 % (39-51); HEMOGLOBIN 12.3 g/dL (13.5-17.5); LYMPHOCYTES # (AUTO) 0.5 /CMM (0.8-4.8); LYMPHOCYTES % (AUTO) 2.9 % (20.0-44.0); MEAN CORPUSCULAR HEMOGLOBIN 33 PG (26.0-33.0); MEAN CORPUSCULAR HGB CONC 33 g/dl (31.0-36.0); MEAN CORPUSCULAR VOLUME 100 fL (80-96); MONOCYTES # (AUTO) 1.3 /CMM (0.1-1.30); MONOCYTES % (AUTO) 7.5 % (2.0-12.0); NEUTROPHILS # (AUTO) 15.7 /CMM (1.8-8.9); NEUTROPHILS % (AUTO) 88.4 % (43.0-81.0); PLATELET COUNT (AUTO) 87 /CMM (150-450); RED BLOOD CELL COUNT(AUTO) 3.74 MIL/uL (4.5-6.0); WHITE BLOOD COUNT (AUTO) 17.8 K/uL (4.3-11.0)
[2016-11-07] MEDS: PIPERACILLIN /TAZOBACTAM 2.25 G in IV D5W 50 ML IV SCH ×3 (05:20→18:02)
[2016-11-07] MEDS: IV NS 0.9% 250 ML IV PRN (05:21)
[2016-11-07 05:36] LABS: CALCIUM, SERUM 9.1 mg/dL (8.5-10.1); CREATININE 3.5 mg/dL (0.6-1.3); PHOSPHORUS 4.8 mg/dL (2.5-4.9); POTASSIUM 4.8 mmol/L (3.5-5.1)
[2016-11-07 06:05] LABS: BAND % (MANUAL) 1 % (0.0-5.0); BASOPHILS % (MANUAL) 0 % (0.0-2.0); EOSINOPHILS % (MANUAL) 1 % (0-4); LYMPHOCYTES % (MANUAL) 3 % (16-48); PLATELET ESTIMATE DECREASED
[2016-11-07] MEDS ORDERED: IV SET PRIMARY PUMP SET 1 EA INFUS.SET MC ONE ×2 (08:35→19:41)
[2016-11-07] MEDS: methylPREDNISolone SOD SUCC 40 MG/ML VIAL IV SCH (08:39)
[2016-11-07] MEDS: AMIODARONE HCL 200 MG TABLET GT SCH (08:39)
[2016-11-07] MEDS: HEPARIN SODIUM, PORCINE 5000 UNITS/1 ML VIAL SQ SCH ×2 (08:42→20:15)
[2016-11-07] MEDS: ASPIRIN 81 MG TAB.CHEW NG SCH (08:44)
[2016-11-07 09:58] LABS: ABG BASE EXCESS -7.1 mmol/L; ABG PCO2 29.9 mmHg (35.0-45.0); ABG PH 7.372 (7.350-7.450); ABG PO2 132.6 mmHg (75.0-100.0); ABG TOTAL HEMOGLOBIN 12.2 G/dL (13.5-18.0); AaDO2 31.8 mmHg; O2Hb 96.2 % (94.0-97.0)
[2016-11-07] MEDS: LORAZEPAM INJ 2 MG/ML VIAL IV PRN ×2 (12:25→21:02)
[2016-11-07] MEDS: LEVOFLOXACIN (250MG) 250 MG TABLET PO SCH (20:14)
[2016-11-08] VITALS (55 sets, daily range): BP systolic 96–184; BP diastolic 67–119
[2016-11-08] MEDS: PIPERACILLIN /TAZOBACTAM 2.25 G in IV D5W 50 ML IV SCH ×4 (00:11→17:56)
[2016-11-08] MEDS: PROPOFOL 100 ML IV PRN ×2 (02:43→16:58)
[2016-11-08] MEDS: IPRATROPIUM NEB FS 0.5 MG/2.5 ML AMPUL.NEB NEB SCH ×6 (03:24→23:13)
[2016-11-08 05:43] LABS: BASOPHILS # (AUTO) 0.1 /CMM (0.0-0.2); BASOPHILS % (AUTO) 0.3 % (0.0-2.0); DIFF TOTAL % 100 %; EOSINOPHILS # (AUTO) 0.1 /CMM (0.0-0.7); EOSINOPHILS % (AUTO) 0.3 % (0.0-6.0); HEMATOCRIT 36 % (39-51); HEMOGLOBIN 11.9 g/dL (13.5-17.5); LYMPHOCYTES # (AUTO) 0.4 /CMM (0.8-4.8); LYMPHOCYTES % (AUTO) 2.2 % (20.0-44.0); MEAN CORPUSCULAR HEMOGLOBIN 33 PG (26.0-33.0); MEAN CORPUSCULAR HGB CONC 33 g/dl (31.0-36.0); MEAN CORPUSCULAR VOLUME 99 fL (80-96); MONOCYTES # (AUTO) 0.9 /CMM (0.1-1.30); MONOCYTES % (AUTO) 5.1 % (2.0-12.0); NEUTROPHILS # (AUTO) 16.9 /CMM (1.8-8.9); NEUTROPHILS % (AUTO) 92.1 % (43.0-81.0); PLATELET COUNT (AUTO) 64 /CMM (150-450); RED BLOOD CELL COUNT(AUTO) 3.58 MIL/uL (4.5-6.0); WHITE BLOOD COUNT (AUTO) 18.3 K/uL (4.3-11.0)
[2016-11-08 06:06] LABS: CALCIUM, SERUM 8.7 mg/dL (8.5-10.1); CREATININE 3.4 mg/dL (0.6-1.3); PHOSPHORUS 6.3 mg/dL (2.5-4.9); POTASSIUM 4.8 mmol/L (3.5-5.1)
[2016-11-08] MEDS: ACETYLCYSTEINE 10% SOLN 400 MG/4 ML VIAL NEB SCH ×3 (07:36→23:13)
[2016-11-08 09:39] LABS: BAND % (MANUAL) 4 % (0.0-5.0); LYMPHOCYTES % (MANUAL) 10 % (16-48)
[2016-11-08 09:40] LABS: ANISOCYTOSIS 1+; HYPOCHROMASIA 1+; PLATELET ESTIMATE DECREASED
[2016-11-08] MEDS: ASPIRIN 81 MG TAB.CHEW NG SCH (09:48)
[2016-11-08] MEDS: AMIODARONE HCL 200 MG TABLET GT SCH (09:49)
[2016-11-08] MEDS: methylPREDNISolone SOD SUCC 40 MG/ML VIAL IV SCH (09:49)
[2016-11-08] MEDS: HEPARIN SODIUM, PORCINE 5000 UNITS/1 ML VIAL SQ SCH ×2 (09:50→21:37)
[2016-11-08] MEDS: RENAL NOVASOURCE 1,000 ML BOTTLE GT PRN (12:56)
[2016-11-08] MEDS: IV NS 0.9% 250 ML IV PRN (12:57)
[2016-11-08 13:18] LABS: ABG BASE EXCESS -8.3 mmol/L; ABG HCO3 16.2 mmol/L; ABG PCO2 30.6 mmHg (35.0-45.0); ABG PH 7.342 (7.350-7.450); ABG PO2 120.7 mmHg (75.0-100.0); ABG TOTAL HEMOGLOBIN 12.5 G/dL (13.5-18.0); AaDO2 42.8 mmHg
[2016-11-08] MEDS ORDERED: hydrALAZINE HCL IV 20 MG VIAL IV PRN (15:30)
[2016-11-08] MEDS ORDERED: IV SET PRIMARY PUMP SET 1 EA INFUS.SET MC ONE (16:54)
[2016-11-08] MEDS: LEVOFLOXACIN (250MG) 250 MG TABLET PO SCH (21:36)
[2016-11-09] VITALS (51 sets, daily range): BP systolic 118–171; BP diastolic 67–99
[2016-11-09] MEDS ORDERED: IV SET PRIMARY PUMP SET 1 EA INFUS.SET MC ONE ×4 (02:11→21:16)
[2016-11-09] MEDS: PROPOFOL 100 ML IV PRN ×4 (02:14→23:48)
[2016-11-09] MEDS: IPRATROPIUM NEB FS 0.5 MG/2.5 ML AMPUL.NEB NEB SCH ×6 (03:20→22:37)
[2016-11-09 05:21] LABS: DIFF TOTAL % 100 %; EOSINOPHILS % (AUTO) 0.1 % (0.0-6.0); HEMATOCRIT 35 % (39-51); HEMOGLOBIN 11.6 g/dL (13.5-17.5); LYMPHOCYTES # (AUTO) 0.4 /CMM (0.8-4.8); LYMPHOCYTES % (AUTO) 2.3 % (20.0-44.0); MEAN CORPUSCULAR HEMOGLOBIN 33 PG (26.0-33.0); MEAN CORPUSCULAR HGB CONC 33 g/dl (31.0-36.0); MEAN CORPUSCULAR VOLUME 100 fL (80-96); MONOCYTES # (AUTO) 0.8 /CMM (0.1-1.30); MONOCYTES % (AUTO) 4.4 % (2.0-12.0); NEUTROPHILS # (AUTO) 17.4 /CMM (1.8-8.9); NEUTROPHILS % (AUTO) 93.2 % (43.0-81.0); PLATELET COUNT (AUTO) 67 /CMM (150-450); RED BLOOD CELL COUNT(AUTO) 3.48 MIL/uL (4.5-6.0); WHITE BLOOD COUNT (AUTO) 18.7 K/uL (4.3-11.0)
[2016-11-09 05:46] LABS: CALCIUM, SERUM 8.7 mg/dL (8.5-10.1); CREATININE 3.3 mg/dL (0.6-1.3); PHOSPHORUS 5.5 mg/dL (2.5-4.9); POTASSIUM 4.1 mmol/L (3.5-5.1)
[2016-11-09] MEDS: PIPERACILLIN /TAZOBACTAM 2.25 G in IV D5W 50 ML IV SCH ×6 (06:09→23:50)
[2016-11-09 06:13] LABS: BAND % (MANUAL) 3 % (0.0-5.0); BASOPHILS % (MANUAL) 0 % (0.0-2.0); EOSINOPHILS % (MANUAL) 1 % (0-4); LYMPHOCYTES % (MANUAL) 1 % (16-48); PLATELET ESTIMATE DECREASED
[2016-11-09] MEDS: ACETYLCYSTEINE 10% SOLN 400 MG/4 ML VIAL NEB SCH ×3 (07:16→22:37)
[2016-11-09] MEDS: methylPREDNISolone SOD SUCC 40 MG/ML VIAL IV SCH (08:10)
[2016-11-09] MEDS: AMIODARONE HCL 200 MG TABLET GT SCH (08:11)
[2016-11-09] MEDS: ASPIRIN 81 MG TAB.CHEW NG SCH (08:11)
[2016-11-09] MEDS: HEPARIN SODIUM, PORCINE 5000 UNITS/1 ML VIAL SQ SCH (08:15)
[2016-11-09] MEDS ORDERED: SECONDARY IV SET 1 EA INFUS.SET MC ONE (08:19)
[2016-11-09] MEDS ORDERED: IV NS 0.9% 250 ML IV ONE (08:22)
[2016-11-09] MEDS: IV NS 0.9% 250 ML IV PRN (08:26)
[2016-11-09 10:05] LABS: ABG BASE EXCESS -7.9 mmol/L; ABG HCO3 15.7 mmol/L; ABG PCO2 27.1 mmHg (35.0-45.0); ABG PH 7.382 (7.350-7.450); ABG PO2 132.3 mmHg (75.0-100.0); ABG TOTAL HEMOGLOBIN 12.1 G/dL (13.5-18.0); ALLEN TEST Pass; AaDO2 35.4 mmHg; O2Hb 96.2 % (94.0-97.0)
[2016-11-09] MEDS: RENAL NOVASOURCE 1,000 ML BOTTLE GT PRN (17:28)
[2016-11-09] MEDS: LEVOFLOXACIN (250MG) 250 MG TABLET PO SCH (21:03)
[2016-11-10] VITALS (49 sets, daily range): BP systolic 66–156; BP diastolic 55–97
[2016-11-10] MEDS: IPRATROPIUM NEB FS 0.5 MG/2.5 ML AMPUL.NEB NEB SCH ×5 (02:46→19:29)
[2016-11-10 04:37] LABS: BASOPHILS % (AUTO) 0.1 % (0.0-2.0); DIFF TOTAL % 100 %; EOSINOPHILS # (AUTO) 0.1 /CMM (0.0-0.7); EOSINOPHILS % (AUTO) 0.6 % (0.0-6.0); HEMATOCRIT 36 % (39-51); HEMOGLOBIN 12.1 g/dL (13.5-17.5); LYMPHOCYTES # (AUTO) 0.3 /CMM (0.8-4.8); LYMPHOCYTES % (AUTO) 1.9 % (20.0-44.0); MEAN CORPUSCULAR HEMOGLOBIN 33 PG (26.0-33.0); MEAN CORPUSCULAR HGB CONC 33 g/dl (31.0-36.0); MEAN CORPUSCULAR VOLUME 100 fL (80-96); MONOCYTES # (AUTO) 0.9 /CMM (0.1-1.30); MONOCYTES % (AUTO) 5.3 % (2.0-12.0); NEUTROPHILS # (AUTO) 16.3 /CMM (1.8-8.9); NEUTROPHILS % (AUTO) 92.1 % (43.0-81.0); RED BLOOD CELL COUNT(AUTO) 3.65 MIL/uL (4.5-6.0); WHITE BLOOD COUNT (AUTO) 17.7 K/uL (4.3-11.0)
[2016-11-10 04:45] LABS: PLATELET COUNT (AUTO) 28 /CMM (150-450)
[2016-11-10 04:50] LABS: INR 0.99 (0.87-1.13); PROTHROMBIN TIME 10.7 SECS (9.5-12.7)
[2016-11-10 05:02] LABS: CALCIUM, SERUM 8.8 mg/dL (8.5-10.1); CREATININE 3.6 mg/dL (0.6-1.3); PHOSPHORUS 5.1 mg/dL (2.5-4.9); POTASSIUM 4.1 mmol/L (3.5-5.1)
[2016-11-10 05:59] LABS: BAND % (MANUAL) 3 % (0.0-5.0); BASOPHILS % (MANUAL) 0 % (0.0-2.0); BURR CELLS 1+; EOSINOPHILS % (MANUAL) 0 % (0-4); LYMPHOCYTES % (MANUAL) 4 % (16-48); METAMYELOCYTES % 1 % (0-0); PLATELET ESTIMATE DECREASED; TEAR DROP CELLS 1+
[2016-11-10] MEDS: PIPERACILLIN /TAZOBACTAM 2.25 G in IV D5W 50 ML IV SCH ×2 (05:59→11:01)
[2016-11-10 06:00] LABS: SCHISTOCYTES 1+
[2016-11-10] MEDS: PROPOFOL 100 ML IV PRN ×3 (06:02→17:24)
[2016-11-10] MEDS: ACETYLCYSTEINE 10% SOLN 400 MG/4 ML VIAL NEB SCH ×3 (06:51→23:08)
[2016-11-10] MEDS ORDERED: IV SET PRIMARY PUMP SET 1 EA INFUS.SET MC ONE (08:55)
[2016-11-10] MEDS: ASPIRIN 81 MG TAB.CHEW NG SCH (09:00)
[2016-11-10] MEDS: AMIODARONE HCL 200 MG TABLET GT SCH (09:09)
[2016-11-10] MEDS: IV NS 0.9% 250 ML IV PRN (09:40)
[2016-11-10] MEDS ORDERED: AMIODARONE HCL 200 MG TABLET NG ONE (10:30)
[2016-11-10] MEDS: RENAL NOVASOURCE 1,000 ML BOTTLE GT PRN (15:53)
[2016-11-10] MEDS: MICAFUNGIN SODIUM 100 MG in IV NS 0.9% 100 ML IV SCH (19:01)
[2016-11-10] MEDS ORDERED: IV SET PRIMARY 1 EA INFUS.SET MC ONE (22:54)
[2016-11-11] VITALS (46 sets, daily range): BP systolic 62–142; BP diastolic 57–105
[2016-11-11] MEDS: PROPOFOL 100 ML IV PRN ×3 (00:05→13:03)
[2016-11-11] MEDS: IPRATROPIUM NEB FS 0.5 MG/2.5 ML AMPUL.NEB NEB SCH ×6 (02:51→23:27)
[2016-11-11] MEDS: ACETYLCYSTEINE 10% SOLN 400 MG/4 ML VIAL NEB SCH ×3 (07:23→23:27)
[2016-11-11 07:46] LABS: BASOPHILS # (AUTO) 0.1 /CMM (0.0-0.2); BASOPHILS % (AUTO) 0.3 % (0.0-2.0); DIFF TOTAL % 100 %; EOSINOPHILS # (AUTO) 0.5 /CMM (0.0-0.7); HEMATOCRIT 34 % (39-51); HEMOGLOBIN 10.9 g/dL (13.5-17.5); LYMPHOCYTES # (AUTO) 0.8 /CMM (0.8-4.8); LYMPHOCYTES % (AUTO) 4.8 % (20.0-44.0); MEAN CORPUSCULAR HEMOGLOBIN 33 PG (26.0-33.0); MEAN CORPUSCULAR HGB CONC 32 g/dl (31.0-36.0); MEAN CORPUSCULAR VOLUME 102 fL (80-96); MONOCYTES # (AUTO) 1.4 /CMM (0.1-1.30); MONOCYTES % (AUTO) 8.9 % (2.0-12.0); NEUTROPHILS # (AUTO) 13.4 /CMM (1.8-8.9); RED BLOOD CELL COUNT(AUTO) 3.32 MIL/uL (4.5-6.0); WHITE BLOOD COUNT (AUTO) 16.2 K/uL (4.3-11.0)
[2016-11-11 07:51] LABS: PLATELET COUNT (AUTO) 24 /CMM (150-450)
[2016-11-11] MEDS: ASPIRIN 81 MG TAB.CHEW NG SCH (08:02)
[2016-11-11 08:06] LABS: BILIRUBIN,TOTAL 0.4 mg/dL (0.2-1.0); CALCIUM, SERUM 8.5 mg/dL (8.5-10.1); CREATININE 3.5 mg/dL (0.6-1.3); PHOSPHORUS 5.1 mg/dL (2.5-4.9); POTASSIUM 4.2 mmol/L (3.5-5.1); TOTAL PROTEIN, SERUM 4.8 g/dL (6.4-8.2)
[2016-11-11] MEDS ORDERED: AMIODARONE HCL 200 MG TABLET GT SCH (09:00)
[2016-11-11 09:16] LABS: BAND % (MANUAL) 2 % (0.0-5.0); EOSINOPHILS % (MANUAL) 2 % (0-4); LYMPHOCYTES % (MANUAL) 4 % (16-48); PLATELET ESTIMATE DECREASED
[2016-11-11 09:17] LABS: ANISOCYTOSIS 1+; OVALOCYTES 1+; POIKILOCYTOSIS 1+
[2016-11-11 12:40] LABS: HIV RAPID SCREEN NON-REACTIVE (NON-REACTIV)
[2016-11-11] MEDS: AMIODARONE HCL 200 MG TABLET NG SCH ×2 (14:59→21:14)
[2016-11-11] MEDS ORDERED: AMIODARONE HCL 200 MG TABLET PO SCH (15:00)
[2016-11-11 15:14] LABS: RHEUMATOID FACTOR SCREEN NEGATIVE (NEG)
[2016-11-11] MEDS: IV NS 0.9% 250 ML IV PRN (18:29)
[2016-11-11] MEDS: RENAL NOVASOURCE 1,000 ML BOTTLE GT PRN (18:29)
[2016-11-11] MEDS: MICAFUNGIN SODIUM 100 MG in IV NS 0.9% 100 ML IV SCH (18:29)
[2016-11-12] VITALS (51 sets, daily range): BP systolic 89–148; BP diastolic 52–96
[2016-11-12] MEDS: PROPOFOL 100 ML IV PRN ×3 (00:06→18:55)
[2016-11-12] MEDS: IPRATROPIUM NEB FS 0.5 MG/2.5 ML AMPUL.NEB NEB SCH ×6 (03:23→23:30)
[2016-11-12] MEDS: AMIODARONE HCL 200 MG TABLET NG SCH ×3 (05:00→20:01)
[2016-11-12 05:12] LABS: BASOPHILS % (AUTO) 0.2 % (0.0-2.0); DIFF TOTAL % 100 %; EOSINOPHILS # (AUTO) 0.4 /CMM (0.0-0.7); EOSINOPHILS % (AUTO) 2.6 % (0.0-6.0); HEMATOCRIT 32 % (39-51); HEMOGLOBIN 10.6 g/dL (13.5-17.5); LYMPHOCYTES # (AUTO) 0.8 /CMM (0.8-4.8); LYMPHOCYTES % (AUTO) 5.3 % (20.0-44.0); MEAN CORPUSCULAR HEMOGLOBIN 33 PG (26.0-33.0); MEAN CORPUSCULAR HGB CONC 33 g/dl (31.0-36.0); MEAN CORPUSCULAR VOLUME 99 fL (80-96); MONOCYTES # (AUTO) 1.1 /CMM (0.1-1.30); MONOCYTES % (AUTO) 7.1 % (2.0-12.0); NEUTROPHILS # (AUTO) 13.2 /CMM (1.8-8.9); NEUTROPHILS % (AUTO) 84.8 % (43.0-81.0); RED BLOOD CELL COUNT(AUTO) 3.19 MIL/uL (4.5-6.0); WHITE BLOOD COUNT (AUTO) 15.6 K/uL (4.3-11.0)
[2016-11-12 05:24] LABS: ALBUMIN 2.1 g/dL (3.4-5.0); BILIRUBIN,TOTAL 0.5 mg/dL (0.2-1.0); CALCIUM, SERUM 8.5 mg/dL (8.5-10.1); CREATININE 3.3 mg/dL (0.6-1.3); PHOSPHORUS 4.8 mg/dL (2.5-4.9); POTASSIUM 3.7 mmol/L (3.5-5.1)
[2016-11-12 05:30] LABS: PLATELET COUNT (AUTO) 36 /CMM (150-450)
[2016-11-12 05:44] LABS: BAND % (MANUAL) 1 % (0.0-5.0); EOSINOPHILS % (MANUAL) 6 % (0-4); LYMPHOCYTES % (MANUAL) 7 % (16-48); PLATELET ESTIMATE DECREASED
[2016-11-12 05:45] LABS: ANISOCYTOSIS 1+
[2016-11-12] MEDS ORDERED: IV NS 0.9% 1,000 ML IV PRN (06:43)
[2016-11-12] MEDS: ACETYLCYSTEINE 10% SOLN 400 MG/4 ML VIAL NEB SCH ×3 (07:14→23:30)
[2016-11-12] MEDS ORDERED: AMIODARONE HCL 200 MG TABLET PO SCH (09:00)
[2016-11-12] MEDS: CLOTRIMAZOLE 1% 15 GM TUBE TP SCH (14:21)
[2016-11-12] MEDS: MICAFUNGIN SODIUM 100 MG in IV NS 0.9% 100 ML IV SCH (17:16)
[2016-11-12] MEDS ORDERED: IV SET PRIMARY PUMP SET 1 EA INFUS.SET MC ONE (17:50)
[2016-11-12] MEDS: IV NS 0.9% 250 ML IV PRN (18:56)
[2016-11-12] MEDS: RENAL NOVASOURCE 1,000 ML BOTTLE GT PRN (18:57)
[2016-11-13] VITALS (44 sets, daily range): BP systolic 98–144; BP diastolic 50–100
[2016-11-13] MEDS: IPRATROPIUM NEB FS 0.5 MG/2.5 ML AMPUL.NEB NEB SCH ×8 (00:35→22:59)
[2016-11-13] MEDS: ACETYLCYSTEINE 10% SOLN 400 MG/4 ML VIAL NEB SCH ×4 (00:35→22:59)
[2016-11-13] MEDS: AMIODARONE HCL 200 MG TABLET NG SCH ×3 (04:24→20:50)
[2016-11-13 04:39] LABS: DIFF TOTAL % 100 %; EOSINOPHILS # (AUTO) 0.3 /CMM (0.0-0.7); EOSINOPHILS % (AUTO) 2.5 % (0.0-6.0); HEMATOCRIT 28 % (39-51); HEMOGLOBIN 9.4 g/dL (13.5-17.5); LYMPHOCYTES # (AUTO) 0.4 /CMM (0.8-4.8); MEAN CORPUSCULAR HEMOGLOBIN 33 PG (26.0-33.0); MEAN CORPUSCULAR HGB CONC 33 g/dl (31.0-36.0); MEAN CORPUSCULAR VOLUME 100 fL (80-96); MONOCYTES # (AUTO) 0.5 /CMM (0.1-1.30); MONOCYTES % (AUTO) 4.9 % (2.0-12.0); NEUTROPHILS # (AUTO) 9.6 /CMM (1.8-8.9); NEUTROPHILS % (AUTO) 88.6 % (43.0-81.0); RED BLOOD CELL COUNT(AUTO) 2.84 MIL/uL (4.5-6.0); WHITE BLOOD COUNT (AUTO) 10.9 K/uL (4.3-11.0)
[2016-11-13 04:54] LABS: CALCIUM, SERUM 8.3 mg/dL (8.5-10.1); CREATININE 3.1 mg/dL (0.6-1.3); POTASSIUM 3.6 mmol/L (3.5-5.1)
[2016-11-13 04:56] LABS: PLATELET COUNT (AUTO) 43 /CMM (150-450)
[2016-11-13] MEDS: PROPOFOL 100 ML IV PRN ×3 (05:22→22:21)
[2016-11-13 05:49] LABS: BAND % (MANUAL) 9 % (0.0-5.0); BASOPHILS % (MANUAL) 0 % (0.0-2.0); EOSINOPHILS % (MANUAL) 2 % (0-4); LYMPHOCYTES % (MANUAL) 2 % (16-48); PLATELET ESTIMATE DECREASED
[2016-11-13 05:50] LABS: ANISOCYTOSIS 1+
[2016-11-13] MEDS: CLOTRIMAZOLE 1% 15 GM TUBE TP SCH ×2 (09:02→17:34)
[2016-11-13 09:44] LABS: ABG BASE EXCESS -10.6 mmol/L; ABG HCO3 13.2 mmol/L; ABG PCO2 23.9 mmHg (35.0-45.0); ABG PH 7.361 (7.350-7.450); ABG PO2 133.6 mmHg (75.0-100.0); ABG TOTAL HEMOGLOBIN 10.8 G/dL (13.5-18.0); AaDO2 37.8 mmHg; O2Hb 95.1 % (94.0-97.0)
[2016-11-13] MEDS: IV D5W 1,000 ML IV PRN (10:36)
[2016-11-13] MEDS ORDERED: SECONDARY IV SET 1 EA INFUS.SET MC ONE (12:07)
[2016-11-13] MEDS ORDERED: IV SET PRIMARY PUMP SET 1 EA INFUS.SET MC ONE (12:07)
[2016-11-14] VITALS (37 sets, daily range): BP systolic 90–127; BP diastolic 49–87
[2016-11-14] MEDS: IV D5W 1,000 ML IV PRN ×2 (01:02→14:49)
[2016-11-14] MEDS: IPRATROPIUM NEB FS 0.5 MG/2.5 ML AMPUL.NEB NEB SCH ×5 (03:11→19:50)
[2016-11-14 04:53] LABS: BASOPHILS % (AUTO) 0.2 % (0.0-2.0); DIFF TOTAL % 100 %; EOSINOPHILS # (AUTO) 0.3 /CMM (0.0-0.7); HEMATOCRIT 31 % (39-51); HEMOGLOBIN 10.3 g/dL (13.5-17.5); LYMPHOCYTES # (AUTO) 0.7 /CMM (0.8-4.8); LYMPHOCYTES % (AUTO) 6.1 % (20.0-44.0); MEAN CORPUSCULAR HEMOGLOBIN 34 PG (26.0-33.0); MEAN CORPUSCULAR HGB CONC 34 g/dl (31.0-36.0); MEAN CORPUSCULAR VOLUME 101 fL (80-96); MONOCYTES # (AUTO) 0.5 /CMM (0.1-1.30); MONOCYTES % (AUTO) 4.2 % (2.0-12.0); NEUTROPHILS # (AUTO) 9.5 /CMM (1.8-8.9); NEUTROPHILS % (AUTO) 86.5 % (43.0-81.0); PLATELET COUNT (AUTO) 53 /CMM (150-450); RED BLOOD CELL COUNT(AUTO) 3.04 MIL/uL (4.5-6.0)
[2016-11-14] MEDS: RENAL NOVASOURCE 1,000 ML BOTTLE GT PRN (05:06)
[2016-11-14] MEDS: AMIODARONE HCL 200 MG TABLET NG SCH ×3 (05:06→21:20)
[2016-11-14 05:08] LABS: CALCIUM, SERUM 8.4 mg/dL (8.5-10.1); PHOSPHORUS 4.9 mg/dL (2.5-4.9); POTASSIUM 3.8 mmol/L (3.5-5.1)
[2016-11-14 05:56] LABS: BAND % (MANUAL) 14 % (0.0-5.0); LYMPHOCYTES % (MANUAL) 4 % (16-48)
[2016-11-14 05:57] LABS: BASOPHILS % (MANUAL) 0 % (0.0-2.0); EOSINOPHILS % (MANUAL) 4 % (0-4); OVALOCYTES 1+; PLATELET ESTIMATE DECREASED
[2016-11-14] MEDS: ACETYLCYSTEINE 10% SOLN 400 MG/4 ML VIAL NEB SCH ×2 (07:09→15:37)
[2016-11-14 08:10] LABS: HEPATITIS C VIRUS AB <0.1 s/co ratio (0.0-0.9)
[2016-11-14] MEDS: CLOTRIMAZOLE 1% 15 GM TUBE TP SCH ×2 (08:17→17:15)
[2016-11-14] MEDS: PROPOFOL 100 ML IV PRN ×2 (08:17→17:15)
[2016-11-14 13:16] LABS: *ANAANTI-SCLERODERMA-70 AB <0.2 AI (0.0-0.9)
[2016-11-15] VITALS (41 sets, daily range): BP systolic 80–136; BP diastolic 53–102
[2016-11-15] MEDS: ACETYLCYSTEINE 10% SOLN 400 MG/4 ML VIAL NEB SCH ×4 (00:07→23:36)
[2016-11-15] MEDS: IPRATROPIUM NEB FS 0.5 MG/2.5 ML AMPUL.NEB NEB SCH ×7 (00:07→23:36)
[2016-11-15] MEDS: IV D5W 1,000 ML IV PRN ×2 (01:26→16:58)
[2016-11-15] MEDS: PROPOFOL 100 ML IV PRN ×4 (01:27→22:20)
[2016-11-15] MEDS: RENAL NOVASOURCE 1,000 ML BOTTLE GT PRN (01:27)
[2016-11-15 04:54] LABS: DIFF TOTAL % 100 %; EOSINOPHILS # (AUTO) 0.2 /CMM (0.0-0.7); EOSINOPHILS % (AUTO) 1.9 % (0.0-6.0); HEMATOCRIT 29 % (39-51); HEMOGLOBIN 9.9 g/dL (13.5-17.5); LYMPHOCYTES # (AUTO) 0.4 /CMM (0.8-4.8); MEAN CORPUSCULAR HEMOGLOBIN 34 PG (26.0-33.0); MEAN CORPUSCULAR HGB CONC 34 g/dl (31.0-36.0); MEAN CORPUSCULAR VOLUME 100 fL (80-96); MONOCYTES # (AUTO) 0.5 /CMM (0.1-1.30); MONOCYTES % (AUTO) 4.1 % (2.0-12.0); PLATELET COUNT (AUTO) 57 /CMM (150-450); RED BLOOD CELL COUNT(AUTO) 2.94 MIL/uL (4.5-6.0); WHITE BLOOD COUNT (AUTO) 12.1 K/uL (4.3-11.0)
[2016-11-15 05:13] LABS: PHOSPHORUS 4.8 mg/dL (2.5-4.9); POTASSIUM 3.7 mmol/L (3.5-5.1)
[2016-11-15] MEDS: AMIODARONE HCL 200 MG TABLET NG SCH ×3 (05:15→22:20)
[2016-11-15 06:17] LABS: BAND % (MANUAL) 9 % (0.0-5.0); BASOPHILS % (MANUAL) 0 % (0.0-2.0); EOSINOPHILS % (MANUAL) 3 % (0-4); LYMPHOCYTES % (MANUAL) 6 % (16-48); PLATELET ESTIMATE DECREASED
[2016-11-15 06:18] LABS: ANISOCYTOSIS 1+
[2016-11-15] MEDS: CLOTRIMAZOLE 1% 15 GM TUBE TP SCH ×2 (08:09→16:59)
[2016-11-15 08:51] LABS: ABG BASE EXCESS -8.8 mmol/L; ABG HCO3 15.4 mmol/L; ABG PCO2 27.8 mmHg (35.0-45.0); ABG PH 7.361 (7.350-7.450); ABG PO2 103.9 mmHg (75.0-100.0); ABG TOTAL HEMOGLOBIN 10.1 G/dL (13.5-18.0); ALLEN TEST Pass; AaDO2 34.1 mmHg
[2016-11-15] MEDS ORDERED: IV SET PRIMARY PUMP SET 1 EA INFUS.SET MC ONE ×3 (10:24→22:38)
[2016-11-16] VITALS (40 sets, daily range): BP systolic 88–143; BP diastolic 42–87
[2016-11-16] MEDS: IPRATROPIUM NEB FS 0.5 MG/2.5 ML AMPUL.NEB NEB SCH ×6 (02:59→23:20)
[2016-11-16] MEDS: IV D5W 1,000 ML IV PRN ×2 (03:08→18:16)
[2016-11-16] MEDS: RENAL NOVASOURCE 1,000 ML BOTTLE GT PRN (03:08)
[2016-11-16] MEDS: PROPOFOL 100 ML IV PRN ×3 (03:10→18:18)
[2016-11-16 05:40] LABS: BASOPHILS % (AUTO) 0.1 % (0.0-2.0); DIFF TOTAL % 100 %; EOSINOPHILS # (AUTO) 0.2 /CMM (0.0-0.7); EOSINOPHILS % (AUTO) 1.6 % (0.0-6.0); HEMATOCRIT 28 % (39-51); HEMOGLOBIN 9.3 g/dL (13.5-17.5); LYMPHOCYTES # (AUTO) 0.4 /CMM (0.8-4.8); LYMPHOCYTES % (AUTO) 3.8 % (20.0-44.0); MEAN CORPUSCULAR HEMOGLOBIN 34 PG (26.0-33.0); MEAN CORPUSCULAR HGB CONC 34 g/dl (31.0-36.0); MEAN CORPUSCULAR VOLUME 100 fL (80-96); MONOCYTES # (AUTO) 0.5 /CMM (0.1-1.30); MONOCYTES % (AUTO) 4.8 % (2.0-12.0); NEUTROPHILS # (AUTO) 8.7 /CMM (1.8-8.9); NEUTROPHILS % (AUTO) 89.7 % (43.0-81.0); PLATELET COUNT (AUTO) 72 /CMM (150-450); RED BLOOD CELL COUNT(AUTO) 2.76 MIL/uL (4.5-6.0); WHITE BLOOD COUNT (AUTO) 9.6 K/uL (4.3-11.0)
[2016-11-16] MEDS: AMIODARONE HCL 200 MG TABLET NG SCH ×3 (05:41→21:31)
[2016-11-16 06:02] LABS: CALCIUM, SERUM 7.8 mg/dL (8.5-10.1); CREATININE 3.1 mg/dL (0.6-1.3); POTASSIUM 3.7 mmol/L (3.5-5.1)
[2016-11-16] MEDS: ACETYLCYSTEINE 10% SOLN 400 MG/4 ML VIAL NEB SCH ×3 (07:52→23:20)
[2016-11-16] MEDS: CLOTRIMAZOLE 1% 15 GM TUBE TP SCH ×2 (09:00→17:18)
[2016-11-16] MEDS ORDERED: IV SET PRIMARY PUMP SET 1 EA INFUS.SET MC ONE (09:37)
[2016-11-16 09:59] LABS: BAND % (MANUAL) 1 % (0.0-5.0); LYMPHOCYTES % (MANUAL) 3 % (16-48); PLATELET ESTIMATE DECREASED
[2016-11-16 10:00] LABS: ANISOCYTOSIS 1+
[2016-11-16 10:14] LABS: ABG HCO3 14.8 mmol/L; ABG PCO2 25.2 mmHg (35.0-45.0); ABG PH 7.386 (7.350-7.450); ABG TOTAL HEMOGLOBIN 9.1 G/dL (13.5-18.0); AaDO2 41.1 mmHg; O2Hb 94.9 % (94.0-97.0)
[2016-11-16] MEDS: ACETAMINOPHEN 650 MG/20.3 ML UDC NG PRN (11:55)
[2016-11-17] VITALS (60 sets, daily range): BP systolic 62–146; BP diastolic 45–96
[2016-11-17] MEDS: LORAZEPAM INJ 2 MG/ML VIAL IV PRN (01:29)
[2016-11-17] MEDS ORDERED: SECONDARY IV SET 1 EA INFUS.SET MC ONE ×2 (01:34→13:26)
[2016-11-17] MEDS: PROPOFOL 100 ML IV PRN ×2 (02:00→10:42)
[2016-11-17] MEDS: IPRATROPIUM NEB FS 0.5 MG/2.5 ML AMPUL.NEB NEB SCH ×6 (03:13→23:51)
[2016-11-17 04:44] LABS: DIFF TOTAL % 100 %; EOSINOPHILS # (AUTO) 0.2 /CMM (0.0-0.7); HEMATOCRIT 28 % (39-51); HEMOGLOBIN 9.1 g/dL (13.5-17.5); LYMPHOCYTES # (AUTO) 0.6 /CMM (0.8-4.8); MEAN CORPUSCULAR HEMOGLOBIN 33 PG (26.0-33.0); MEAN CORPUSCULAR HGB CONC 33 g/dl (31.0-36.0); MEAN CORPUSCULAR VOLUME 99 fL (80-96); MONOCYTES # (AUTO) 0.4 /CMM (0.1-1.30); MONOCYTES % (AUTO) 5.3 % (2.0-12.0); NEUTROPHILS # (AUTO) 7.2 /CMM (1.8-8.9); NEUTROPHILS % (AUTO) 85.7 % (43.0-81.0); PLATELET COUNT (AUTO) 83 /CMM (150-450); RED BLOOD CELL COUNT(AUTO) 2.77 MIL/uL (4.5-6.0); WHITE BLOOD COUNT (AUTO) 8.4 K/uL (4.3-11.0)
[2016-11-17 05:09] LABS: CALCIUM, SERUM 7.6 mg/dL (8.5-10.1); CREATININE 3.1 mg/dL (0.6-1.3); POTASSIUM 3.8 mmol/L (3.5-5.1)
[2016-11-17] MEDS: AMIODARONE HCL 200 MG TABLET NG SCH ×3 (05:15→21:29)
[2016-11-17 05:44] LABS: BAND % (MANUAL) 4 % (0.0-5.0); BASOPHILS % (MANUAL) 0 % (0.0-2.0); EOSINOPHILS % (MANUAL) 3 % (0-4); LYMPHOCYTES % (MANUAL) 6 % (16-48); PLATELET ESTIMATE DECREASED
[2016-11-17 05:45] LABS: TEAR DROP CELLS 1+
[2016-11-17] MEDS: IV D5W 1,000 ML IV PRN (06:16)
[2016-11-17] MEDS: ACETYLCYSTEINE 10% SOLN 400 MG/4 ML VIAL NEB SCH ×3 (07:46→23:51)
[2016-11-17 08:16] LABS: INR 0.93 (0.87-1.13)
[2016-11-17] MEDS: CLOTRIMAZOLE 1% 15 GM TUBE TP SCH ×2 (08:24→17:17)
[2016-11-17] MEDS ORDERED: IV SET PRIMARY PUMP SET 1 EA INFUS.SET MC ONE ×3 (08:44→20:37)
[2016-11-17] MEDS ORDERED: HYDROGEL DRESSING 90 GM TUBE TP PRN (09:00)
[2016-11-17] MEDS: ACETAMINOPHEN 650 MG/SUPP.RECT RC PRN (09:40)
[2016-11-17] MEDS: HYDROGEL DRESSING 90 GM TUBE TP SCH (10:46)
[2016-11-17] MEDS: RENAL NOVASOURCE 1,000 ML BOTTLE GT PRN (11:54)
[2016-11-17] MEDS ORDERED: PIPERACILLIN /TAZOBACTAM 3.375 G in IV D5W 50 ML IV SCH (12:00)
[2016-11-17] MEDS ORDERED: FEE PK DOSING 1 MIN EA MC ONE (12:27)
[2016-11-17] MEDS ORDERED: IV NS 0.9% 1,000 ML BAG IV ONE (12:30)
[2016-11-17] MEDS ORDERED: IV D5/0.45 NACL 1,000 ML IV PRN (12:30)
[2016-11-17] MEDS ORDERED: VANCOMYCIN 1 GM in IV D5W 250 ML IV SCH (13:00)
[2016-11-17] MEDS ORDERED: PIPERACILLIN /TAZOBACTAM 2.25 G in IV D5W 50 ML IV SCH (13:00)
[2016-11-17] MEDS ORDERED: VANCOMYCIN 1 GM in IV D5W 250 ML IV ONE (16:00)
[2016-11-17] MEDS ORDERED: MEROPENEM 500 MG in IV NS 0.9% 50 ML IV SCH (16:00)
[2016-11-17 16:32] LABS: ABG BASE EXCESS -14.4 mmol/L; ABG HCO3 12.2 mmol/L; ABG PH 7.213 (7.350-7.450); ABG PO2 76.9 mmHg (75.0-100.0); ABG TOTAL HEMOGLOBIN 9.7 G/dL (13.5-18.0); AaDO2 54.4 mmHg; O2Hb 90.8 % (94.0-97.0)
[2016-11-17] MEDS: MEROPENEM 500 MG in IV NS 0.9% 50 ML IV SCH (17:59)
[2016-11-17] MEDS: Sodium Bicarbonate 100 MEQ in IV D5W 1,000 ML IV PRN (17:59)
[2016-11-17] MEDS ORDERED: IV NS 0.9% 250 ML IV ONE (18:02)
[2016-11-17] MEDS: NOREPINEPHRINE 16 MG in IV D5W 500 ML IV PRN (20:37)
[2016-11-17] MEDS: METRONIDAZOLE 500 MG TABLET GT SCH (21:28)
[2016-11-18] VITALS (97 sets, daily range): BP systolic 10–154; BP diastolic 50–87
[2016-11-18] MEDS ORDERED: IV SET PRIMARY PUMP SET 1 EA INFUS.SET MC ONE ×2 (00:39→20:04)
[2016-11-18] MEDS: PROPOFOL 100 ML IV PRN ×3 (01:36→21:26)
[2016-11-18] MEDS: Sodium Bicarbonate 100 MEQ in IV D5W 1,000 ML IV PRN (03:07)
[2016-11-18] MEDS: IPRATROPIUM NEB FS 0.5 MG/2.5 ML AMPUL.NEB NEB SCH ×6 (03:33→22:55)
[2016-11-18] MEDS: METRONIDAZOLE 500 MG TABLET GT SCH ×2 (04:47→12:57)
[2016-11-18] MEDS: AMIODARONE HCL 200 MG TABLET NG SCH ×3 (04:48→21:27)
[2016-11-18 05:24] LABS: DIFF TOTAL % 100 %; EOSINOPHILS % (AUTO) 1.1 % (0.0-6.0); HEMATOCRIT 27 % (39-51); LYMPHOCYTES # (AUTO) 0.2 /CMM (0.8-4.8); LYMPHOCYTES % (AUTO) 6.3 % (20.0-44.0); MEAN CORPUSCULAR HEMOGLOBIN 33 PG (26.0-33.0); MEAN CORPUSCULAR HGB CONC 34 g/dl (31.0-36.0); MEAN CORPUSCULAR VOLUME 98 fL (80-96); MONOCYTES # (AUTO) 0.1 /CMM (0.1-1.30); MONOCYTES % (AUTO) 3.4 % (2.0-12.0); NEUTROPHILS # (AUTO) 2.2 /CMM (1.8-8.9); NEUTROPHILS % (AUTO) 89.2 % (43.0-81.0); PLATELET COUNT (AUTO) 69 /CMM (150-450); RED BLOOD CELL COUNT(AUTO) 2.72 MIL/uL (4.5-6.0); WHITE BLOOD COUNT (AUTO) 2.5 K/uL (4.3-11.0)
[2016-11-18 05:41] LABS: CALCIUM, SERUM 7.1 mg/dL (8.5-10.1); CREATININE 3.6 mg/dL (0.6-1.3); POTASSIUM 4.6 mmol/L (3.5-5.1)
[2016-11-18] MEDS: MEROPENEM 500 MG in IV NS 0.9% 50 ML IV SCH ×2 (05:48→18:57)
[2016-11-18 05:56] LABS: BAND % (MANUAL) 14 % (0.0-5.0); EOSINOPHILS % (MANUAL) 4 % (0-4); LYMPHOCYTES % (MANUAL) 12 % (16-48); MYELOCYTES % 2 % (0-0); PLATELET ESTIMATE DECREASED
[2016-11-18 05:57] LABS: ANISOCYTOSIS 1+; BURR CELLS 1+; POIKILOCYTOSIS 1+
[2016-11-18] MEDS: ACETYLCYSTEINE 10% SOLN 400 MG/4 ML VIAL NEB SCH ×3 (08:01→22:55)
[2016-11-18] MEDS: HYDROGEL DRESSING 90 GM TUBE TP SCH (09:36)
[2016-11-18] MEDS: CLOTRIMAZOLE 1% 15 GM TUBE TP SCH ×2 (09:36→18:58)
[2016-11-18 09:51] LABS: CREATININE, URINE 33.9 MG/DL (30.0-125.0)
[2016-11-18 12:04] LABS: ABG BASE EXCESS -8.7 mmol/L; ABG HCO3 15.4 mmol/L; ABG PCO2 27.6 mmHg (35.0-45.0); ABG PH 7.365 (7.350-7.450); ABG PO2 84.6 mmHg (75.0-100.0); ABG TOTAL HEMOGLOBIN 9.8 G/dL (13.5-18.0); ALLEN TEST Pass; AaDO2 82.5 mmHg; O2Hb 93.7 % (94.0-97.0)
[2016-11-18] MEDS: ACETAMINOPHEN 650 MG/20.3 ML UDC NG PRN (13:16)
[2016-11-18] MEDS: Sodium Bicarbonate 100 MEQ in IV 1/2NS 1000 ML 1,000 ML IV PRN (13:54)
[2016-11-18] MEDS: RENAL NOVASOURCE 1,000 ML BOTTLE GT PRN (18:57)
[2016-11-18] MEDS: IV NS 0.9% 250 ML IV PRN (19:48)
[2016-11-18] MEDS: LINEZOLID 600 MG TABLET PO SCH (21:26)
[2016-11-19] VITALS (101 sets, daily range): BP systolic 77–153; BP diastolic 38–85
[2016-11-19] MEDS: Sodium Bicarbonate 100 MEQ in IV 1/2NS 1000 ML 1,000 ML IV PRN ×2 (00:14→09:34)
[2016-11-19] MEDS: PROPOFOL 100 ML IV PRN ×5 (03:31→23:41)
[2016-11-19] MEDS: IPRATROPIUM NEB FS 0.5 MG/2.5 ML AMPUL.NEB NEB SCH ×6 (04:07→23:04)
[2016-11-19] MEDS: AMIODARONE HCL 200 MG TABLET NG SCH ×3 (05:00→21:10)
[2016-11-19 05:12] LABS: DIFF TOTAL % 100 %; EOSINOPHILS # (AUTO) 0.2 /CMM (0.0-0.7); EOSINOPHILS % (AUTO) 3.2 % (0.0-6.0); HEMATOCRIT 23 % (39-51); HEMOGLOBIN 7.9 g/dL (13.5-17.5); LYMPHOCYTES # (AUTO) 0.2 /CMM (0.8-4.8); MEAN CORPUSCULAR HEMOGLOBIN 33 PG (26.0-33.0); MEAN CORPUSCULAR HGB CONC 35 g/dl (31.0-36.0); MEAN CORPUSCULAR VOLUME 97 fL (80-96); MONOCYTES % (AUTO) 0.7 % (2.0-12.0); NEUTROPHILS # (AUTO) 5.1 /CMM (1.8-8.9); NEUTROPHILS % (AUTO) 92.1 % (43.0-81.0); PLATELET COUNT (AUTO) 79 /CMM (150-450); RED BLOOD CELL COUNT(AUTO) 2.37 MIL/uL (4.5-6.0); WHITE BLOOD COUNT (AUTO) 5.6 K/uL (4.3-11.0)
[2016-11-19] MEDS: MEROPENEM 500 MG in IV NS 0.9% 50 ML IV SCH ×2 (05:16→17:05)
[2016-11-19 05:21] LABS: CALCIUM, SERUM 6.5 mg/dL (8.5-10.1); CREATININE 3.6 mg/dL (0.6-1.3); POTASSIUM 3.6 mmol/L (3.5-5.1)
[2016-11-19 05:29] LABS: LACTIC ACID 1.4 mmol/L (0.4-2.0)
[2016-11-19 05:47] LABS: INR 1.11 (0.87-1.13)
[2016-11-19 05:58] LABS: BAND % (MANUAL) 2 % (0.0-5.0); EOSINOPHILS % (MANUAL) 5 % (0-4); LYMPHOCYTES % (MANUAL) 6 % (16-48); MYELOCYTES % 1 % (0-0); PLATELET ESTIMATE DECREASED
[2016-11-19 05:59] LABS: ANISOCYTOSIS 1+; BURR CELLS 1+; POIKILOCYTOSIS 1+
[2016-11-19] MEDS: ACETYLCYSTEINE 10% SOLN 400 MG/4 ML VIAL NEB SCH ×3 (08:21→23:04)
[2016-11-19] MEDS: LINEZOLID 600 MG TABLET PO SCH ×2 (08:58→21:09)
[2016-11-19] MEDS: HYDROGEL DRESSING 90 GM TUBE TP SCH (08:59)
[2016-11-19] MEDS: CLOTRIMAZOLE 1% 15 GM TUBE TP SCH ×2 (08:59→17:06)
[2016-11-19] MEDS ORDERED: IV SET PRIMARY PUMP SET 1 EA INFUS.SET MC ONE ×2 (10:26→20:28)
[2016-11-19 10:27] LABS: ABG BASE EXCESS -4.7 mmol/L; ABG HCO3 18.4 mmol/L; ABG PCO2 26.8 mmHg (35.0-45.0); ABG PH 7.454 (7.350-7.450); ABG PO2 87.6 mmHg (75.0-100.0); ABG TOTAL HEMOGLOBIN 8.6 G/dL (13.5-18.0); AaDO2 80.4 mmHg; O2Hb 93.9 % (94.0-97.0)
[2016-11-19] MEDS: NOREPINEPHRINE 16 MG in IV D5W 500 ML IV PRN ×2 (11:06→17:05)
[2016-11-19 11:17] LABS: HAPTOGLOBIN 46 mg/dL (34-200)
[2016-11-19] MEDS: BLOOD SUGAR DIAGNOSTIC 1 EACH STRIP IN SCH ×2 (11:30→17:05)
[2016-11-19] MEDS: DEXTROSE 50%-WATER 50 ML DISP.SYRIN IV PRN ×2 (11:30→13:26)
[2016-11-19] MEDS: ACETAMINOPHEN 650 MG/20.3 ML UDC NG PRN (12:51)
[2016-11-19] MEDS: IV D5/ 0.9% NACL 1,000 ML IV PRN (13:43)
[2016-11-19] MEDS: RENAL NOVASOURCE 1,000 ML BOTTLE GT PRN (17:15)
[2016-11-19] MEDS ORDERED: SECONDARY IV SET 1 EA INFUS.SET MC ONE (18:44)
[2016-11-19] MEDS: MICAFUNGIN SODIUM 100 MG in IV NS 0.9% 100 ML IV SCH (19:13)
[2016-11-20] VITALS (78 sets, daily range): BP systolic 69–136; BP diastolic 32–95
[2016-11-20] MEDS: BLOOD SUGAR DIAGNOSTIC 1 EACH STRIP IN SCH ×4 (00:28→17:15)
[2016-11-20] MEDS: IV D5/ 0.9% NACL 1,000 ML IV PRN ×2 (01:32→12:16)
[2016-11-20] MEDS: IPRATROPIUM NEB FS 0.5 MG/2.5 ML AMPUL.NEB NEB SCH ×6 (03:25→22:56)
[2016-11-20] MEDS: PROPOFOL 100 ML IV PRN ×4 (04:27→22:30)
[2016-11-20] MEDS: AMIODARONE HCL 200 MG TABLET NG SCH ×3 (05:00→21:14)
[2016-11-20 05:03] LABS: DIFF TOTAL % 100 %; EOSINOPHILS # (AUTO) 0.2 /CMM (0.0-0.7); EOSINOPHILS % (AUTO) 2.7 % (0.0-6.0); HEMATOCRIT 23 % (39-51); HEMOGLOBIN 7.6 g/dL (13.5-17.5); LYMPHOCYTES # (AUTO) 0.3 /CMM (0.8-4.8); LYMPHOCYTES % (AUTO) 3.3 % (20.0-44.0); MEAN CORPUSCULAR HEMOGLOBIN 33 PG (26.0-33.0); MEAN CORPUSCULAR HGB CONC 34 g/dl (31.0-36.0); MEAN CORPUSCULAR VOLUME 98 fL (80-96); MONOCYTES # (AUTO) 0.1 /CMM (0.1-1.30); MONOCYTES % (AUTO) 1.4 % (2.0-12.0); NEUTROPHILS % (AUTO) 92.6 % (43.0-81.0); PLATELET COUNT (AUTO) 98 /CMM (150-450); RED BLOOD CELL COUNT(AUTO) 2.31 MIL/uL (4.5-6.0); WHITE BLOOD COUNT (AUTO) 7.6 K/uL (4.3-11.0)
[2016-11-20 05:28] LABS: CALCIUM, SERUM 6.9 mg/dL (8.5-10.1); CREATININE 3.7 mg/dL (0.6-1.3); POTASSIUM 3.2 mmol/L (3.5-5.1)
[2016-11-20] MEDS: MEROPENEM 500 MG in IV NS 0.9% 50 ML IV SCH ×2 (05:45→17:05)
[2016-11-20] MEDS: LINEZOLID 600 MG TABLET PO SCH ×2 (08:08→21:14)
[2016-11-20] MEDS: HYDROGEL DRESSING 90 GM TUBE TP SCH (08:08)
[2016-11-20] MEDS: CLOTRIMAZOLE 1% 15 GM TUBE TP SCH ×2 (08:09→16:12)
[2016-11-20] MEDS: ACETYLCYSTEINE 10% SOLN 400 MG/4 ML VIAL NEB SCH ×3 (08:21→22:56)
[2016-11-20 08:32] LABS: ANISOCYTOSIS 1+; BAND % (MANUAL) 20 % (0.0-5.0); EOSINOPHILS % (MANUAL) 3 % (0-4); LYMPHOCYTES % (MANUAL) 4 % (16-48); METAMYELOCYTES % 1 % (0-0); PLATELET ESTIMATE DECREASED
[2016-11-20 08:33] LABS: SPHEROCYTES 1+
[2016-11-20 09:56] LABS: IRON, SERUM 10 ug/dl (50-175); PERCENT SATURATION 12 % (14-33); TOTAL IRON BINDING CAPACITY 87 ug/dl (250-450)
[2016-11-20] MEDS ORDERED: POTASSIUM CHLORIDE 20 MEQ TAB.PRT.SR PO ONE (10:00)
[2016-11-20] MEDS ORDERED: IV SET PRIMARY PUMP SET 1 EA INFUS.SET MC ONE ×2 (10:31→21:34)
[2016-11-20] MEDS ORDERED: EPOETIN ALFA (20,000 UNIT) 20,000 UNIT/ML VIAL SQ ONE (12:00)
[2016-11-20] MEDS ORDERED: BLOOD IV SET 1 EA INFUS.SET MC ONE (16:12)
[2016-11-20] MEDS ORDERED: IV NS 0.9% 250 ML IV ONE (16:12)
[2016-11-20] MEDS: RENAL NOVASOURCE 1,000 ML BOTTLE GT PRN (18:06)
[2016-11-20] MEDS: MICAFUNGIN SODIUM 100 MG in IV NS 0.9% 100 ML IV SCH (18:06)
[2016-11-21] VITALS (61 sets, daily range): BP systolic 75–128; BP diastolic 35–81
[2016-11-21] MEDS: BLOOD SUGAR DIAGNOSTIC 1 EACH STRIP IN SCH ×4 (00:36→17:04)
[2016-11-21] MEDS: ACETAMINOPHEN 650 MG/SUPP.RECT RC PRN (01:34)
[2016-11-21] MEDS: IPRATROPIUM NEB FS 0.5 MG/2.5 ML AMPUL.NEB NEB SCH ×6 (03:09→23:41)
[2016-11-21] MEDS: PROPOFOL 100 ML IV PRN ×4 (04:00→17:52)
[2016-11-21] MEDS: AMIODARONE HCL 200 MG TABLET NG SCH ×3 (04:05→20:20)
[2016-11-21] MEDS: MEROPENEM 500 MG in IV NS 0.9% 50 ML IV SCH ×2 (05:14→17:01)
[2016-11-21 05:47] LABS: HEMOGLOBIN 8.3 g/dL (13.5-17.5)
[2016-11-21] MEDS: NOREPINEPHRINE 16 MG in IV D5W 500 ML IV PRN ×2 (06:46→16:08)
[2016-11-21] MEDS: ACETYLCYSTEINE 10% SOLN 400 MG/4 ML VIAL NEB SCH ×3 (07:04→23:41)
[2016-11-21] MEDS: CLOTRIMAZOLE 1% 15 GM TUBE TP SCH ×2 (08:30→16:09)
[2016-11-21] MEDS: HYDROGEL DRESSING 90 GM TUBE TP SCH (08:30)
[2016-11-21] MEDS: LINEZOLID 600 MG TABLET PO SCH ×2 (09:07→20:42)
[2016-11-21] MEDS ORDERED: IV SET PRIMARY PUMP SET 1 EA INFUS.SET MC ONE ×2 (13:00→21:05)
[2016-11-21] MEDS ORDERED: SECONDARY IV SET 1 EA INFUS.SET MC ONE ×2 (13:00→21:05)
[2016-11-21] MEDS: SOD FERRIC GLUC 125 MG in IV NS 0.9% 100 ML IV SCH (13:57)
[2016-11-21] MEDS: RENAL NOVASOURCE 1,000 ML BOTTLE GT PRN (16:07)
[2016-11-21] MEDS: MICAFUNGIN SODIUM 100 MG in IV NS 0.9% 100 ML IV SCH (17:51)
[2016-11-21] MEDS: IV D5/ 0.9% NACL 1,000 ML IV PRN (20:14)
[2016-11-22] VITALS (47 sets, daily range): BP systolic 95–135; BP diastolic 57–78
[2016-11-22] MEDS: BLOOD SUGAR DIAGNOSTIC 1 EACH STRIP IN SCH ×4 (00:09→17:57)
[2016-11-22] MEDS: PROPOFOL 100 ML IV PRN ×4 (00:09→21:19)
[2016-11-22] MEDS: IPRATROPIUM NEB FS 0.5 MG/2.5 ML AMPUL.NEB NEB SCH ×6 (03:53→23:32)
[2016-11-22] MEDS: AMIODARONE HCL 200 MG TABLET NG SCH ×3 (04:37→21:18)
[2016-11-22 04:52] LABS: DIFF TOTAL % 100 %; EOSINOPHILS # (AUTO) 0.4 /CMM (0.0-0.7); EOSINOPHILS % (AUTO) 5.4 % (0.0-6.0); HEMATOCRIT 25 % (39-51); HEMOGLOBIN 8.4 g/dL (13.5-17.5); LYMPHOCYTES # (AUTO) 0.2 /CMM (0.8-4.8); LYMPHOCYTES % (AUTO) 3.2 % (20.0-44.0); MEAN CORPUSCULAR HEMOGLOBIN 32 PG (26.0-33.0); MEAN CORPUSCULAR HGB CONC 34 g/dl (31.0-36.0); MEAN CORPUSCULAR VOLUME 96 fL (80-96); MONOCYTES # (AUTO) 0.1 /CMM (0.1-1.30); MONOCYTES % (AUTO) 1.3 % (2.0-12.0); NEUTROPHILS # (AUTO) 6.7 /CMM (1.8-8.9); NEUTROPHILS % (AUTO) 90.1 % (43.0-81.0); PLATELET COUNT (AUTO) 111 /CMM (150-450); RED BLOOD CELL COUNT(AUTO) 2.58 MIL/uL (4.5-6.0); WHITE BLOOD COUNT (AUTO) 7.4 K/uL (4.3-11.0)
[2016-11-22 05:13] LABS: COMPLEMENT C4, SERUM 38 mg/dL (14-44)
[2016-11-22 05:21] LABS: BILIRUBIN,TOTAL 0.9 mg/dL (0.2-1.0); CALCIUM, SERUM 7.4 mg/dL (8.5-10.1); CREATININE 3.9 mg/dL (0.6-1.3); PHOSPHORUS 4.6 mg/dL (2.5-4.9); POTASSIUM 3.2 mmol/L (3.5-5.1); TOTAL PROTEIN, SERUM 4.7 g/dL (6.4-8.2)
[2016-11-22 05:34] LABS: ALBUMIN 1.2 g/dL (3.4-5.0)
[2016-11-22] MEDS: MEROPENEM 500 MG in IV NS 0.9% 50 ML IV SCH ×2 (06:11→17:59)
[2016-11-22] MEDS: ACETYLCYSTEINE 10% SOLN 400 MG/4 ML VIAL NEB SCH ×3 (07:22→23:33)
[2016-11-22] MEDS: CLOTRIMAZOLE 1% 15 GM TUBE TP SCH ×2 (10:25→17:59)
[2016-11-22] MEDS: HYDROGEL DRESSING 90 GM TUBE TP SCH (10:25)
[2016-11-22] MEDS: ALBUMIN 25% 25 GM in PREMIX 1 EA IV SCH ×2 (11:00→23:16)
[2016-11-22] MEDS: IV NS 0.9% 250 ML IV PRN (11:00)
[2016-11-22] MEDS: LINEZOLID 600 MG TABLET PO SCH ×2 (11:00→21:18)
[2016-11-22] MEDS ORDERED: IV SET PRIMARY PUMP SET 1 EA INFUS.SET MC ONE ×2 (13:03→21:15)
[2016-11-22 13:25] LABS: ABG BASE EXCESS -8.9 mmol/L; ABG PCO2 25.7 mmHg (35.0-45.0); ABG PH 7.385 (7.350-7.450); ABG PO2 89.1 mmHg (75.0-100.0); ABG TOTAL HEMOGLOBIN 8.5 G/dL (13.5-18.0); AaDO2 80.2 mmHg; O2Hb 93.8 % (94.0-97.0)
[2016-11-22] MEDS ORDERED: POTASSIUM CHLORIDE 20 MEQ POWDER PACKET GT ONE (14:30)
[2016-11-22] MEDS: SOD FERRIC GLUC 125 MG in IV NS 0.9% 100 ML IV SCH (15:30)
[2016-11-22] MEDS: RENAL NOVASOURCE 1,000 ML BOTTLE GT PRN (15:32)
[2016-11-22] MEDS: MICAFUNGIN SODIUM 100 MG in IV NS 0.9% 100 ML IV SCH (17:59)
[2016-11-23] VITALS (40 sets, daily range): BP systolic 97–139; BP diastolic 60–81
[2016-11-23] MEDS: BLOOD SUGAR DIAGNOSTIC 1 EACH STRIP IN SCH ×4 (00:06→17:33)
[2016-11-23] MEDS: PROPOFOL 100 ML IV PRN ×2 (03:28→12:20)
[2016-11-23] MEDS: IPRATROPIUM NEB FS 0.5 MG/2.5 ML AMPUL.NEB NEB SCH ×6 (04:01→23:45)
[2016-11-23 05:04] LABS: BASOPHILS % (AUTO) 0.1 % (0.0-2.0); DIFF TOTAL % 100 %; EOSINOPHILS # (AUTO) 0.3 /CMM (0.0-0.7); EOSINOPHILS % (AUTO) 4.3 % (0.0-6.0); HEMATOCRIT 24 % (39-51); HEMOGLOBIN 8.1 g/dL (13.5-17.5); LYMPHOCYTES # (AUTO) 0.4 /CMM (0.8-4.8); LYMPHOCYTES % (AUTO) 4.7 % (20.0-44.0); MEAN CORPUSCULAR HEMOGLOBIN 32 PG (26.0-33.0); MEAN CORPUSCULAR HGB CONC 33 g/dl (31.0-36.0); MEAN CORPUSCULAR VOLUME 96 fL (80-96); MONOCYTES # (AUTO) 0.1 /CMM (0.1-1.30); MONOCYTES % (AUTO) 1.6 % (2.0-12.0); NEUTROPHILS # (AUTO) 7.2 /CMM (1.8-8.9); NEUTROPHILS % (AUTO) 89.3 % (43.0-81.0); PLATELET COUNT (AUTO) 118 /CMM (150-450); RED BLOOD CELL COUNT(AUTO) 2.51 MIL/uL (4.5-6.0); WHITE BLOOD COUNT (AUTO) 8.1 K/uL (4.3-11.0)
[2016-11-23 05:17] LABS: ALBUMIN 1.9 g/dL (3.4-5.0); CALCIUM, SERUM 7.9 mg/dL (8.5-10.1); CREATININE 3.9 mg/dL (0.6-1.3); POTASSIUM 3.8 mmol/L (3.5-5.1)
[2016-11-23] MEDS: MEROPENEM 500 MG in IV NS 0.9% 50 ML IV SCH ×2 (05:50→17:33)
[2016-11-23] MEDS: IV NS 0.9% 250 ML IV PRN (05:51)
[2016-11-23] MEDS: AMIODARONE HCL 200 MG TABLET NG SCH ×3 (05:51→20:10)
[2016-11-23 06:18] LABS: INR 0.93 (0.87-1.13)
[2016-11-23] MEDS: ACETAMINOPHEN 650 MG/20.3 ML UDC NG PRN (06:28)
[2016-11-23] MEDS: ACETYLCYSTEINE 10% SOLN 400 MG/4 ML VIAL NEB SCH ×3 (07:47→23:45)
[2016-11-23] MEDS: LINEZOLID 600 MG TABLET PO SCH ×2 (08:34→20:09)
[2016-11-23] MEDS: HYDROGEL DRESSING 90 GM TUBE TP SCH (08:35)
[2016-11-23] MEDS: CLOTRIMAZOLE 1% 15 GM TUBE TP SCH ×2 (08:35→17:33)
[2016-11-23] MEDS: SOD FERRIC GLUC 125 MG in IV NS 0.9% 100 ML IV SCH (13:25)
[2016-11-23] MEDS ORDERED: BUPIVACAINE 0.5 % PF 150 MG/30 ML VIAL ONE (17:47)
[2016-11-23] MEDS ORDERED: LIDOCAINE HCL/PF 1% 30 ML SDV ONE (17:47)
[2016-11-23] MEDS: DEXTROSE 50%-WATER 50 ML DISP.SYRIN IV PRN (18:02)
[2016-11-23] MEDS ORDERED: ROCURONIUM BROMIDE 50 MG/5 ML ONE (18:18)
[2016-11-23] MEDS ORDERED: MIDAZOLAM HCL 2 MG/2ML VIAL ONE (18:18)
[2016-11-23] MEDS ORDERED: ANESTHESIA TRAY IN PYXIS 1 EA TRAY MC ONE (19:56)
[2016-11-23] MEDS ORDERED: IV SET PRIMARY PUMP SET 1 EA INFUS.SET MC ONE (22:24)
[2016-11-23] MEDS ORDERED: IV D5/0.45 NACL 1,000 ML IV ONE (22:24)
[2016-11-23] MEDS: IV D5/0.45 NACL 1,000 ML IV PRN (22:30)
[2016-11-24] VITALS (43 sets, daily range): BP systolic 109–144; BP diastolic 50–85
[2016-11-24] MEDS: BLOOD SUGAR DIAGNOSTIC 1 EACH STRIP IN SCH ×4 (00:08→17:45)
[2016-11-24] MEDS: IPRATROPIUM NEB FS 0.5 MG/2.5 ML AMPUL.NEB NEB SCH ×6 (03:14→23:31)
[2016-11-24] MEDS: LORAZEPAM INJ 2 MG/ML VIAL IV PRN (03:37)
[2016-11-24] MEDS: AMIODARONE HCL 200 MG TABLET NG SCH ×3 (05:16→21:13)
[2016-11-24 05:19] LABS: DIFF TOTAL % 100 %; EOSINOPHILS # (AUTO) 0.1 /CMM (0.0-0.7); EOSINOPHILS % (AUTO) 1.5 % (0.0-6.0); HEMATOCRIT 24 % (39-51); HEMOGLOBIN 8.3 g/dL (13.5-17.5); LYMPHOCYTES # (AUTO) 0.4 /CMM (0.8-4.8); LYMPHOCYTES % (AUTO) 4.8 % (20.0-44.0); MEAN CORPUSCULAR HEMOGLOBIN 33 PG (26.0-33.0); MEAN CORPUSCULAR HGB CONC 34 g/dl (31.0-36.0); MEAN CORPUSCULAR VOLUME 95 fL (80-96); MONOCYTES # (AUTO) 0.2 /CMM (0.1-1.30); MONOCYTES % (AUTO) 2.3 % (2.0-12.0); NEUTROPHILS # (AUTO) 8.4 /CMM (1.8-8.9); NEUTROPHILS % (AUTO) 91.4 % (43.0-81.0); PLATELET COUNT (AUTO) 125 /CMM (150-450); RED BLOOD CELL COUNT(AUTO) 2.56 MIL/uL (4.5-6.0); WHITE BLOOD COUNT (AUTO) 9.2 K/uL (4.3-11.0)
[2016-11-24] MEDS ORDERED: MEROPENEM 500 MG VIAL IV ONE (05:32)
[2016-11-24 05:36] LABS: CALCIUM, SERUM 8.2 mg/dL (8.5-10.1); CREATININE 4.2 mg/dL (0.6-1.3); PHOSPHORUS 6.2 mg/dL (2.5-4.9); POTASSIUM 4.3 mmol/L (3.5-5.1)
[2016-11-24] MEDS ORDERED: IV NS 0.9% 50 ML IV ONE (05:55)
[2016-11-24 06:00] LABS: ABG BASE EXCESS -11.4 mmol/L; ABG HCO3 13.3 mmol/L; ABG PCO2 26.3 mmHg (35.0-45.0); ABG PH 7.323 (7.350-7.450); ABG PO2 72.6 mmHg (75.0-100.0); ABG TOTAL HEMOGLOBIN 9.4 G/dL (13.5-18.0); ALLEN TEST Pass; O2Hb 91.3 % (94.0-97.0)
[2016-11-24] MEDS: MEROPENEM 500 MG in IV NS 0.9% 50 ML IV SCH ×2 (06:03→17:45)
[2016-11-24] MEDS ORDERED: IV SET PRIMARY PUMP SET 1 EA INFUS.SET MC ONE ×2 (07:59→20:42)
[2016-11-24] MEDS: LINEZOLID 600 MG TABLET PO SCH ×2 (08:01→21:12)
[2016-11-24] MEDS: PROPOFOL 100 ML IV PRN ×2 (08:02→17:56)
[2016-11-24] MEDS: HYDROGEL DRESSING 90 GM TUBE TP SCH (08:06)
[2016-11-24] MEDS: CLOTRIMAZOLE 1% 15 GM TUBE TP SCH ×2 (08:06→17:44)
[2016-11-24] MEDS: ACETYLCYSTEINE 10% SOLN 400 MG/4 ML VIAL NEB SCH ×3 (08:15→23:31)
[2016-11-24] MEDS ORDERED: ROCURONIUM BROMIDE 50 MG/5 ML ONE (09:17)
[2016-11-24] MEDS ORDERED: ANESTHESIA TRAY IN PYXIS 1 EA TRAY MC ONE (11:47)
[2016-11-24] MEDS: SOD FERRIC GLUC 125 MG in IV NS 0.9% 100 ML IV SCH (15:16)
[2016-11-24] MEDS: RENAL NOVASOURCE 1,000 ML BOTTLE GT PRN (17:47)
[2016-11-24] MEDS: IV D5/0.45 NACL 1,000 ML IV PRN (17:55)
[2016-11-25] VITALS (54 sets, daily range): BP systolic 113–169; BP diastolic 17–115
[2016-11-25] MEDS: IPRATROPIUM NEB FS 0.5 MG/2.5 ML AMPUL.NEB NEB SCH ×6 (03:17→23:46)
[2016-11-25] MEDS: PROPOFOL 100 ML IV PRN ×2 (04:19→08:38)
[2016-11-25 04:53] LABS: BASOPHILS % (AUTO) 0.3 % (0.0-2.0); DIFF TOTAL % 100 %; EOSINOPHILS # (AUTO) 0.2 /CMM (0.0-0.7); EOSINOPHILS % (AUTO) 2.1 % (0.0-6.0); HEMATOCRIT 24 % (39-51); HEMOGLOBIN 8.1 g/dL (13.5-17.5); LYMPHOCYTES # (AUTO) 0.6 /CMM (0.8-4.8); LYMPHOCYTES % (AUTO) 5.5 % (20.0-44.0); MEAN CORPUSCULAR HEMOGLOBIN 32 PG (26.0-33.0); MEAN CORPUSCULAR HGB CONC 33 g/dl (31.0-36.0); MEAN CORPUSCULAR VOLUME 96 fL (80-96); MONOCYTES # (AUTO) 0.2 /CMM (0.1-1.30); MONOCYTES % (AUTO) 1.9 % (2.0-12.0); NEUTROPHILS # (AUTO) 9.5 /CMM (1.8-8.9); NEUTROPHILS % (AUTO) 90.2 % (43.0-81.0); PLATELET COUNT (AUTO) 117 /CMM (150-450); RED BLOOD CELL COUNT(AUTO) 2.53 MIL/uL (4.5-6.0); WHITE BLOOD COUNT (AUTO) 10.6 K/uL (4.3-11.0)
[2016-11-25 05:11] LABS: CALCIUM, SERUM 7.8 mg/dL (8.5-10.1); CREATININE 4.3 mg/dL (0.6-1.3); POTASSIUM 4.4 mmol/L (3.5-5.1)
[2016-11-25] MEDS: AMIODARONE HCL 200 MG TABLET NG SCH ×3 (05:34→21:17)
[2016-11-25] MEDS: BLOOD SUGAR DIAGNOSTIC 1 EACH STRIP IN SCH ×4 (05:42→17:36)
[2016-11-25] MEDS: ACETYLCYSTEINE 10% SOLN 400 MG/4 ML VIAL NEB SCH ×3 (08:26→23:46)
[2016-11-25] MEDS ORDERED: BUMETANIDE INJ 0.25 MG/ML VIAL IV ONE (08:30)
[2016-11-25] MEDS: HYDROGEL DRESSING 90 GM TUBE TP SCH (08:32)
[2016-11-25] MEDS ORDERED: IV SET PRIMARY PUMP SET 1 EA INFUS.SET MC ONE (08:34)
[2016-11-25] MEDS: IV D5/0.45 NACL 1,000 ML IV PRN (08:38)
[2016-11-25] MEDS: CLOTRIMAZOLE 1% 15 GM TUBE TP SCH ×2 (08:39→17:36)
[2016-11-25] MEDS: DIAZEPAM 5 MG TABLET PEG PRN ×2 (08:39→16:29)
[2016-11-25] MEDS: LINEZOLID 600 MG TABLET PO SCH ×2 (08:39→21:18)
[2016-11-25] MEDS: ACETAMINOPHEN 650 MG/20.3 ML UDC NG PRN (09:01)
[2016-11-25] MEDS: SOD FERRIC GLUC 125 MG in IV NS 0.9% 100 ML IV SCH (14:16)
[2016-11-26] VITALS (49 sets, daily range): BP systolic 98–140; BP diastolic 56–90
[2016-11-26] MEDS: IV D5/0.45 NACL 1,000 ML IV PRN ×2 (00:49→15:16)
[2016-11-26] MEDS: LORAZEPAM INJ 2 MG/ML VIAL IV PRN (00:50)
[2016-11-26] MEDS: PROPOFOL 100 ML IV PRN ×2 (00:50→11:09)
[2016-11-26] MEDS: RENAL NOVASOURCE 1,000 ML BOTTLE GT PRN ×2 (00:52→15:16)
[2016-11-26] MEDS: IPRATROPIUM NEB FS 0.5 MG/2.5 ML AMPUL.NEB NEB SCH ×6 (03:44→23:25)
[2016-11-26 04:38] LABS: BASOPHILS % (AUTO) 0.2 % (0.0-2.0); DIFF TOTAL % 100 %; EOSINOPHILS # (AUTO) 0.2 /CMM (0.0-0.7); EOSINOPHILS % (AUTO) 1.4 % (0.0-6.0); HEMATOCRIT 24 % (39-51); HEMOGLOBIN 7.8 g/dL (13.5-17.5); LYMPHOCYTES # (AUTO) 0.5 /CMM (0.8-4.8); MEAN CORPUSCULAR HEMOGLOBIN 31 PG (26.0-33.0); MEAN CORPUSCULAR HGB CONC 33 g/dl (31.0-36.0); MEAN CORPUSCULAR VOLUME 96 fL (80-96); MONOCYTES # (AUTO) 0.3 /CMM (0.1-1.30); NEUTROPHILS # (AUTO) 10.4 /CMM (1.8-8.9); NEUTROPHILS % (AUTO) 91.4 % (43.0-81.0); PLATELET COUNT (AUTO) 97 /CMM (150-450); RED BLOOD CELL COUNT(AUTO) 2.48 MIL/uL (4.5-6.0); WHITE BLOOD COUNT (AUTO) 11.4 K/uL (4.3-11.0)
[2016-11-26] MEDS: DIAZEPAM 5 MG TABLET PEG PRN ×3 (04:48→20:28)
[2016-11-26] MEDS: AMIODARONE HCL 200 MG TABLET NG SCH ×3 (04:48→20:26)
[2016-11-26 04:54] LABS: CALCIUM, SERUM 7.7 mg/dL (8.5-10.1); CREATININE 4.6 mg/dL (0.6-1.3); PHOSPHORUS 7.1 mg/dL (2.5-4.9); POTASSIUM 4.4 mmol/L (3.5-5.1)
[2016-11-26 05:08] LABS: BAND % (MANUAL) 2 % (0.0-5.0); LYMPHOCYTES % (MANUAL) 7 % (16-48); PLATELET ESTIMATE DECREASED
[2016-11-26 05:09] LABS: ANISOCYTOSIS 1+
[2016-11-26] MEDS: BLOOD SUGAR DIAGNOSTIC 1 EACH STRIP IN SCH ×2 (06:00)
[2016-11-26] MEDS: ACETYLCYSTEINE 10% SOLN 400 MG/4 ML VIAL NEB SCH ×3 (07:48→23:25)
[2016-11-26] MEDS ORDERED: IV SET PRIMARY PUMP SET 1 EA INFUS.SET MC ONE ×3 (08:01→21:14)
[2016-11-26] MEDS: LINEZOLID 600 MG TABLET PO SCH ×2 (08:11→20:25)
[2016-11-26] MEDS: HYDROGEL DRESSING 90 GM TUBE TP SCH (08:12)
[2016-11-26] MEDS: CLOTRIMAZOLE 1% 15 GM TUBE TP SCH ×2 (08:12→15:15)
[2016-11-26 08:59] LABS: ABG BASE EXCESS -11.9 mmol/L; ABG HCO3 14.2 mmol/L; ABG PCO2 33.1 mmHg (35.0-45.0); ABG PH 7.251 (7.350-7.450); ABG PO2 104.6 mmHg (75.0-100.0); ABG TOTAL HEMOGLOBIN 9.1 G/dL (13.5-18.0); ALLEN TEST Pass; AaDO2 106.5 mmHg; O2Hb 94.8 % (94.0-97.0)
[2016-11-26] MEDS ORDERED: BUMETANIDE INJ 4 MG in IV NS 0.9% 24 ML IV ONE (10:30)
[2016-11-26] MEDS ORDERED: ALBUMIN 25% 25 GM in PREMIX 1 EA IV SCH (10:30)
[2016-11-26] MEDS ORDERED: IV NS 0.9% 250 ML IV ONE (11:01)
[2016-11-26] MEDS ORDERED: SECONDARY IV SET 1 EA INFUS.SET MC ONE (11:01)
[2016-11-27] VITALS (57 sets, daily range): BP systolic 96–141; BP diastolic 47–84
[2016-11-27] MEDS: PROPOFOL 100 ML IV PRN (01:18)
[2016-11-27] MEDS: LORAZEPAM INJ 2 MG/ML VIAL IV PRN ×3 (01:18→20:36)
[2016-11-27] MEDS: IPRATROPIUM NEB FS 0.5 MG/2.5 ML AMPUL.NEB NEB SCH ×6 (03:49→23:47)
[2016-11-27] MEDS: AMIODARONE HCL 200 MG TABLET NG SCH ×3 (05:10→20:19)
[2016-11-27] MEDS: IV D5/0.45 NACL 1,000 ML IV PRN (05:26)
[2016-11-27 05:55] LABS: BASOPHILS % (AUTO) 0.1 % (0.0-2.0); DIFF TOTAL % 100 %; EOSINOPHILS # (AUTO) 0.3 /CMM (0.0-0.7); EOSINOPHILS % (AUTO) 2.5 % (0.0-6.0); HEMATOCRIT 22 % (39-51); HEMOGLOBIN 7.4 g/dL (13.5-17.5); LYMPHOCYTES # (AUTO) 0.4 /CMM (0.8-4.8); LYMPHOCYTES % (AUTO) 3.9 % (20.0-44.0); MEAN CORPUSCULAR HEMOGLOBIN 33 PG (26.0-33.0); MEAN CORPUSCULAR HGB CONC 34 g/dl (31.0-36.0); MEAN CORPUSCULAR VOLUME 99 fL (80-96); MONOCYTES # (AUTO) 0.1 /CMM (0.1-1.30); NEUTROPHILS # (AUTO) 10.2 /CMM (1.8-8.9); NEUTROPHILS % (AUTO) 92.5 % (43.0-81.0); PLATELET COUNT (AUTO) 83 /CMM (150-450); RED BLOOD CELL COUNT(AUTO) 2.26 MIL/uL (4.5-6.0)
[2016-11-27 06:00] LABS: CALCIUM, SERUM 7.6 mg/dL (8.5-10.1); CREATININE 4.6 mg/dL (0.6-1.3); PHOSPHORUS 6.1 mg/dL (2.5-4.9); POTASSIUM 4.1 mmol/L (3.5-5.1)
[2016-11-27 07:03] LABS: ANISOCYTOSIS 1+; BAND % (MANUAL) 9 % (0.0-5.0); EOSINOPHILS % (MANUAL) 5 % (0-4); HYPOCHROMASIA 1+; LYMPHOCYTES % (MANUAL) 4 % (16-48); PLATELET ESTIMATE DECREASED
[2016-11-27] MEDS: MORPHINE SULFATE INJ 2 MG/ML DISP.SYRIN IV PRN ×3 (07:46→22:30)
[2016-11-27] MEDS: ACETYLCYSTEINE 10% SOLN 400 MG/4 ML VIAL NEB SCH ×3 (07:46→23:47)
[2016-11-27] MEDS: LINEZOLID 600 MG TABLET PO SCH ×2 (08:40→20:18)
[2016-11-27] MEDS: ACETAMINOPHEN 650 MG/SUPP.RECT RC PRN (08:40)
[2016-11-27] MEDS: RENAL NOVASOURCE 1,000 ML BOTTLE GT PRN (08:41)
[2016-11-27] MEDS: HYDROGEL DRESSING 90 GM TUBE TP SCH (08:41)
[2016-11-27] MEDS: CLOTRIMAZOLE 1% 15 GM TUBE TP SCH ×2 (08:41→17:22)
[2016-11-27 10:11] LABS: ABG BASE EXCESS -10.3 mmol/L; ABG HCO3 14.4 mmol/L; ABG PCO2 27.4 mmHg (35.0-45.0); ABG PH 7.339 (7.350-7.450); ABG PO2 112.9 mmHg (75.0-100.0); ABG TOTAL HEMOGLOBIN 7.4 G/dL (13.5-18.0); ALLEN TEST Pass; AaDO2 104.8 mmHg; O2Hb 94.6 % (94.0-97.0)
[2016-11-27 10:37] LABS: KETONES,URINE NEGATIVE (NEGATIVE); LEUKOCYTE ESTERASE ,URINE NEGATIVE (NEGATIVE); PH,URINE 5.5 (5.0-8.0)
[2016-11-27 10:39] LABS: ADD UA MICROSCOPIC YES
[2016-11-27 10:42] LABS: ADD URINE CULTURE NO; WBC,URINE 0-2 /HPF (0-3)
[2016-11-27 10:43] LABS: MUCUS,URINE Few /LPF (None Seen)
[2016-11-27] MEDS: DIAZEPAM 5 MG TABLET PEG PRN ×3 (11:14→23:54)
[2016-11-27 11:17] LABS: INR 0.97 (0.87-1.13); PROTHROMBIN TIME 10.5 SECS (9.5-12.7)
[2016-11-27] MEDS ORDERED: IV SET PRIMARY PUMP SET 1 EA INFUS.SET MC ONE (12:21)
[2016-11-27] MEDS: IV NS 0.9% 250 ML IV PRN (12:27)
[2016-11-27] MEDS ORDERED: ALBUMIN 25% 25 GM in PREMIX 1 EA IV ONE (12:30)
[2016-11-27] MEDS ORDERED: DILTIAZEM HCL 50 MG IV IV ONE ×2 (21:00→21:30)
[2016-11-27] MEDS ORDERED: DILTIAZEM HCL 50 MG IV ONE (21:10)
[2016-11-27] MEDS: METOCLOPRAMIDE HCL 10 MG/2 ML VIAL IV SCH (21:23)
[2016-11-27] MEDS ORDERED: DILTIAZEM HCL 25 MG IV IV ONE (21:30)
[2016-11-28] VITALS (58 sets, daily range): BP systolic 103–153; BP diastolic 38–101
[2016-11-28] MEDS ORDERED: DILTIAZEM HCL 25 MG IV ONE ×2 (01:18→05:21)
[2016-11-28] MEDS: DILTIAZEM HCL 25 MG IV IV PRN ×4 (01:26→17:52)
[2016-11-28] MEDS: IV NS 0.9% 250 ML IV PRN (02:04)
[2016-11-28] MEDS ORDERED: METOCLOPRAMIDE HCL 10 MG/2 ML VIAL ONE (02:30)
[2016-11-28] MEDS: METOCLOPRAMIDE HCL 10 MG/2 ML VIAL IV SCH (02:35)
[2016-11-28] MEDS: MORPHINE SULFATE INJ 2 MG/ML DISP.SYRIN IV PRN ×3 (02:36→12:12)
[2016-11-28] MEDS: IPRATROPIUM NEB FS 0.5 MG/2.5 ML AMPUL.NEB NEB SCH ×6 (03:29→23:59)
[2016-11-28] MEDS: AMIODARONE HCL 200 MG TABLET NG SCH ×3 (04:40→21:01)
[2016-11-28 05:01] LABS: BASOPHILS # (AUTO) 0.1 /CMM (0.0-0.2); BASOPHILS % (AUTO) 0.6 % (0.0-2.0); DIFF TOTAL % 100 %; EOSINOPHILS # (AUTO) 0.2 /CMM (0.0-0.7); HEMATOCRIT 22 % (39-51); HEMOGLOBIN 7.3 g/dL (13.5-17.5); LYMPHOCYTES # (AUTO) 0.7 /CMM (0.8-4.8); LYMPHOCYTES % (AUTO) 6.6 % (20.0-44.0); MEAN CORPUSCULAR HEMOGLOBIN 33 PG (26.0-33.0); MEAN CORPUSCULAR HGB CONC 34 g/dl (31.0-36.0); MEAN CORPUSCULAR VOLUME 98 fL (80-96); MONOCYTES # (AUTO) 0.3 /CMM (0.1-1.30); NEUTROPHILS # (AUTO) 8.8 /CMM (1.8-8.9); NEUTROPHILS % (AUTO) 87.8 % (43.0-81.0); PLATELET COUNT (AUTO) 73 /CMM (150-450)
[2016-11-28 05:31] LABS: CALCIUM, SERUM 7.8 mg/dL (8.5-10.1); CREATININE 4.6 mg/dL (0.6-1.3); POTASSIUM 4.4 mmol/L (3.5-5.1)
[2016-11-28 05:42] LABS: BAND % (MANUAL) 13 % (0.0-5.0); BASOPHILS % (MANUAL) 0 % (0.0-2.0); EOSINOPHILS % (MANUAL) 0 % (0-4); LYMPHOCYTES % (MANUAL) 11 % (16-48); PLATELET ESTIMATE DECREASED
[2016-11-28 05:43] LABS: ANISOCYTOSIS 1+; BURR CELLS 1+; OVALOCYTES 1+; TEAR DROP CELLS 1+
[2016-11-28] MEDS: DIAZEPAM 5 MG TABLET PEG PRN ×2 (06:23→16:43)
[2016-11-28] MEDS: ACETYLCYSTEINE 10% SOLN 400 MG/4 ML VIAL NEB SCH ×3 (07:52→23:59)
[2016-11-28] MEDS ORDERED: DEXTROSE 50%-WATER 50 ML DISP.SYRIN IVP ONE (08:00)
[2016-11-28] MEDS: LINEZOLID 600 MG TABLET PO SCH ×2 (08:05→20:55)
[2016-11-28] MEDS: CLOTRIMAZOLE 1% 15 GM TUBE TP SCH ×2 (08:06→16:11)
[2016-11-28] MEDS: HYDROGEL DRESSING 90 GM TUBE TP SCH (08:06)
[2016-11-28] MEDS: RENAL NOVASOURCE 1,000 ML BOTTLE GT PRN (09:57)
[2016-11-28] MEDS: LORAZEPAM INJ 2 MG/ML VIAL IV PRN ×2 (10:00→16:10)
[2016-11-28] MEDS ORDERED: RENAL NOVASOURCE 1,000 ML BOTTLE GT PRN (10:50)
[2016-11-28] MEDS: CITRIC ACID/SODIUM CITRATE (BICITRA)15 ML UDC PO SCH ×2 (17:37→21:03)
[2016-11-28] MEDS ORDERED: METOPROLOL TARTRATE INJ 5 MG/5 ML AMPUL IVP PRN (20:30)
[2016-11-28] MEDS ORDERED: BUMETANIDE INJ 3 MG in IV NS 0.9% 48 ML IV ONE (20:30)
[2016-11-28] MEDS ORDERED: SECONDARY IV SET 1 EA INFUS.SET MC ONE (20:58)
[2016-11-28] MEDS ORDERED: BUMETANIDE INJ 2 MG in IV NS 0.9% 32 ML IV ONE (21:00)
[2016-11-28] MEDS: METOPROLOL TARTRATE 25 MG TABLET GT SCH (23:22)
[2016-11-29] VITALS (65 sets, daily range): BP systolic 60–167; BP diastolic 22–123
[2016-11-29] MEDS: IPRATROPIUM NEB FS 0.5 MG/2.5 ML AMPUL.NEB NEB SCH ×4 (03:27→15:44)
[2016-11-29] MEDS: DILTIAZEM HCL 25 MG IV IV PRN (03:34)
[2016-11-29 04:52] LABS: BASOPHILS % (AUTO) 0.2 % (0.0-2.0); DIFF TOTAL % 100 %; EOSINOPHILS # (AUTO) 0.1 /CMM (0.0-0.7); EOSINOPHILS % (AUTO) 1.2 % (0.0-6.0); HEMATOCRIT 21 % (39-51); LYMPHOCYTES # (AUTO) 0.5 /CMM (0.8-4.8); LYMPHOCYTES % (AUTO) 5.6 % (20.0-44.0); MEAN CORPUSCULAR HEMOGLOBIN 33 PG (26.0-33.0); MEAN CORPUSCULAR HGB CONC 34 g/dl (31.0-36.0); MEAN CORPUSCULAR VOLUME 97 fL (80-96); MONOCYTES # (AUTO) 0.3 /CMM (0.1-1.30); NEUTROPHILS # (AUTO) 7.6 /CMM (1.8-8.9); PLATELET COUNT (AUTO) 74 /CMM (150-450); RED BLOOD CELL COUNT(AUTO) 2.13 MIL/uL (4.5-6.0); WHITE BLOOD COUNT (AUTO) 8.6 K/uL (4.3-11.0)
[2016-11-29 05:05] LABS: CALCIUM, SERUM 7.5 mg/dL (8.5-10.1); PHOSPHORUS 6.4 mg/dL (2.5-4.9); POTASSIUM 4.2 mmol/L (3.5-5.1)
[2016-11-29] MEDS: AMIODARONE HCL 200 MG TABLET NG SCH ×2 (05:33→12:42)
[2016-11-29] MEDS: METOPROLOL TARTRATE 25 MG TABLET GT SCH ×3 (05:34→17:27)
[2016-11-29 05:38] LABS: BAND % (MANUAL) 3 % (0.0-5.0); BASOPHILS % (MANUAL) 0 % (0.0-2.0); EOSINOPHILS % (MANUAL) 3 % (0-4); LYMPHOCYTES % (MANUAL) 6 % (16-48)
[2016-11-29 05:39] LABS: ANISOCYTOSIS 1+; OVALOCYTES 1+; PLATELET ESTIMATE DECREASED
[2016-11-29] MEDS: ACETYLCYSTEINE 10% SOLN 400 MG/4 ML VIAL NEB SCH ×2 (07:50→15:44)
[2016-11-29] MEDS: LINEZOLID 600 MG TABLET PO SCH (08:38)
[2016-11-29] MEDS: CLOTRIMAZOLE 1% 15 GM TUBE TP SCH ×2 (08:38→17:26)
[2016-11-29] MEDS: CITRIC ACID/SODIUM CITRATE (BICITRA)15 ML UDC PO SCH ×3 (08:38→17:26)
[2016-11-29] MEDS: HYDROGEL DRESSING 90 GM TUBE TP SCH (08:38)
[2016-11-29] MEDS ORDERED: VIT B CMPLX 3/FA/VIT C/BIOTIN 1 TAB TABLET GT SCH (09:30)
[2016-11-29] MEDS ORDERED: EPOETIN ALFA (20,000 UNIT) 20,000 UNIT/ML VIAL SQ SCH (11:00)
[2016-11-29] MEDS: PANTOPRAZOLE 40 MG VIAL IV SCH ×2 (12:42→17:26)
[2016-11-29] MEDS ORDERED: BLOOD IV SET 1 EA INFUS.SET MC ONE ×2 (13:20→13:41)
[2016-11-29] MEDS ORDERED: IV NS 0.9% 250 ML IV ONE (13:21)
[2016-11-29] MEDS ORDERED: SILVER NITRATE APPLICATOR 1 EA BOX TP ONE ×2 (16:30)
[2016-11-29] MEDS ORDERED: LIDOCAINE 1%-EPI 1:100,000 20 ML VIAL TP ONE (16:30)
[2016-11-30] MEDS ORDERED: METOPROLOL TARTRATE 25 MG TABLET GT SCH
== END 2016-11-29 19:20 | DRG 4 ==
LOC: EDBD → ER 20:32 → TELE 22:21 → MED 10-27 07:52 → ICU 10-27 18:00
PROVIDERS: ADMIT Family Medicine; ATTEND Family Medicine
PROC: 5A1945Z Respiratory Ventilation, 24-96 Consecutive Hours (ICD-10-PCS; principal; 2016-10-27)
PROC: 0BH18EZ Insertion of Endotracheal Airway into Trachea, Via Natural or Artificial Opening Endoscopic (ICD-10-PCS; 2016-10-27)
PROC: 05H533Z Insertion of Infusion Device into Right Subclavian Vein, Percutaneous Approach (ICD-10-PCS; 2016-10-27)
PROC: 5A1955Z Respiratory Ventilation, Greater than 96 Consecutive Hours (ICD-10-PCS; 2016-11-01)
PROC: 0BH18EZ Insertion of Endotracheal Airway into Trachea, Via Natural or Artificial Opening Endoscopic (ICD-10-PCS; 2016-11-01)
PROC: 0BH18EZ Insertion of Endotracheal Airway into Trachea, Via Natural or Artificial Opening Endoscopic (ICD-10-PCS; 2016-11-18)
PROC: 02HV33Z Insertion of Infusion Device into Superior Vena Cava, Percutaneous Approach (ICD-10-PCS; 2016-11-18)
PROC: B548ZZA Ultrasonography of Superior Vena Cava, Guidance (ICD-10-PCS; 2016-11-18)
PROC: 30233N1 Transfusion of Nonautologous Red Blood Cells into Peripheral Vein, Percutaneous Approach (ICD-10-PCS; 2016-11-20)
PROC: 0B110F4 Bypass Trachea to Cutaneous with Tracheostomy Device, Open Approach (ICD-10-PCS; 2016-11-23)
PROC: 0DH63UZ Insertion of Feeding Device into Stomach, Percutaneous Approach (ICD-10-PCS; 2016-11-24)
PROC: 06HM33Z Insertion of Infusion Device into Right Femoral Vein, Percutaneous Approach (ICD-10-PCS; 2016-11-28)
PROC: B54BZZA Ultrasonography of Right Lower Extremity Veins, Guidance (ICD-10-PCS; 2016-11-28)
PROC: 5A1D60Z (ICD-10-PCS; 2016-11-28)
DX: A41.9 Sepsis, unspecified organism (principal); J96.02 Acute respiratory failure with hypercapnia; I21.4 Non-ST elevation (NSTEMI) myocardial infarction; I50.23 Acute on chronic systolic (congestive) heart failure; J18.9 Pneumonia, unspecified organism; R65.21 Severe sepsis with septic shock; N17.0 Acute kidney failure with tubular necrosis; G92 Toxic encephalopathy; L89.154 Pressure ulcer of sacral region, stage 4; J96.01 Acute respiratory failure with hypoxia; E44.0 Moderate protein-calorie malnutrition; D68.59 Other primary thrombophilia; E87.0 Hyperosmolality and hypernatremia; D61.818 Other pancytopenia; E87.2 Acidosis; I13.0 Hypertensive heart and chronic kidney disease with heart failure and stage 1 through stage 4 chronic kidney disease, or unspecified chronic kidney disease; J90 Pleural effusion, not elsewhere classified; R40.3 Persistent vegetative state; I48.91 Unspecified atrial fibrillation; M62.50 Muscle wasting and atrophy, not elsewhere classified, unspecified site; K21.9 Gastro-esophageal reflux disease without esophagitis; N18.9 Chronic kidney disease, unspecified; F10.10 Alcohol abuse, uncomplicated; N40.0 Benign prostatic hyperplasia without lower urinary tract symptoms; E88.09 Other disorders of plasma-protein metabolism, not elsewhere classified; D69.6 Thrombocytopenia, unspecified; E87.6 Hypokalemia; I25.10 Atherosclerotic heart disease of native coronary artery without angina pectoris; J42 Unspecified chronic bronchitis; D64.9 Anemia, unspecified; D69.59 Other secondary thrombocytopenia; E86.9 Volume depletion, unspecified; I48.0 Paroxysmal atrial fibrillation; R13.10 Dysphagia, unspecified; Z98.61 Coronary angioplasty status; I71.2 Thoracic aortic aneurysm, without rupture; I49.5 Sick sinus syndrome; L98.9 Disorder of the skin and subcutaneous tissue, unspecified; I71.4 Abdominal aortic aneurysm, without rupture; B95.2 Enterococcus as the cause of diseases classified elsewhere; B96.89 Other specified bacterial agents as the cause of diseases classified elsewhere
CPT/HCPCS: 31720; 36415; 36569; 36600; 43246; 70450-TC; 71010-TC; 71250-TC; 76700-TC; 76770-TC; 80048-TC; 80053-TC; 80061-TC; 80076-TC; 80202-TC; 81000-TC; 82040-TC; 82272-TC; 82550-TC; 82570-TC; 82728-TC; 82746; 82803-TC; 82962-TC; 83010; 83540-TC; 83605-TC; 83615-TC; 83735-TC; 83880; 83970; 84100-TC; 84155; 84155-TC; 84165; 84300-TC; 84439-TC; 84443-TC; 84478-TC; 84484-TC; 85025-TC; 85027-TC; 85385-TC; 85396; 85610-TC; 85730-TC; 86140-TC; 86225; 86235; 86431-TC; 86703-TC; 86706; 86803; 86850-TC; 86880-TC; 86901; 86921-TC; 87040-TC; 87070-TC; 87081-TC; 87086-TC; 87186-TC; 87340; 90935-TC; 92611-TC; 93307-TC; 93308-TC; 94002-TC; 94003-TC; 94760-TC; 94799-TC; 99082-TC; A4216; A4606; A6248; A6253; A6402; A6403; C1750; C1751; C9113; G6038-TC; G6040-TC; J0282; J0330; J0360; J0885; J1644; J1956; J2060; J2185; J2248; J2250; J2270; J2405; J2543; J2765; J2916; J2920; J2930; J3370; J3490; J7030; J7042; J7050; J7060; J7070; P9016-BL; P9047; Z7610

== ENCOUNTER 2016-12-02 12:00 | Inpatient (IN) | payer MEDICARE, MEDICAID ==
[~2016-12-02] VITALS: Ht 172.7 cm; Wt 82.6 kg
[~2016-12-02 12:00] MED LIST: ASPI-991 PO; BACL10TA PO; CLOP75TA2 PO; DEXL60CA3 PO; DICL50TA9 PO; DOXA4TAB3 PO; FEBU40TA PO; GABA-532 PO; ISOS30TA6 PO; METO-304 PO; NITR0.4T SL; OLME1TAB32 PO; ZOLP5TAB7 PO
[2016-12-02 12:23] LABS: WHITE BLOOD COUNT (AUTO) 12.1 K/uL (4.3-11.0)
[2016-12-02 12:27] LABS: BASOPHILS # (AUTO) 0.2 /CMM (0.0-0.2); BASOPHILS % (AUTO) 1.4 % (0.0-2.0); DIFF TOTAL % 100 %; EOSINOPHILS # (AUTO) 0.2 /CMM (0.0-0.7); EOSINOPHILS % (AUTO) 1.5 % (0.0-6.0); HEMATOCRIT 26 % (39-51); HEMOGLOBIN 8.7 g/dL (13.5-17.5); LYMPHOCYTES # (AUTO) 1.4 /CMM (0.8-4.8); LYMPHOCYTES % (AUTO) 11.2 % (20.0-44.0); MEAN CORPUSCULAR HEMOGLOBIN 35 PG (26.0-33.0); MEAN CORPUSCULAR HGB CONC 34 g/dl (31.0-36.0); MEAN CORPUSCULAR VOLUME 102 fL (80-96); MONOCYTES # (AUTO) 0.3 /CMM (0.1-1.30); MONOCYTES % (AUTO) 2.1 % (2.0-12.0); NEUTROPHILS % (AUTO) 83.8 % (43.0-81.0); RED BLOOD CELL COUNT(AUTO) 2.51 MIL/uL (4.5-6.0)
[2016-12-02 12:29] LABS: PLATELET COUNT (AUTO) 50 /CMM (150-450)
[2016-12-02 12:40] LABS: INR 1.67 (0.87-1.13); PROTHROMBIN TIME 17.5 SECS (9.5-12.7)
[2016-12-02 12:47] VITALS: BP 123/61
[2016-12-02 12:49] LABS: ALBUMIN 1.6 g/dL (3.4-5.0); BILIRUBIN,TOTAL 1.6 mg/dL (0.2-1.0); CALCIUM, SERUM 7.3 mg/dL (8.5-10.1); CREATININE 4.8 mg/dL (0.6-1.3); INDIRECT BILIRUBIN 0.6 mg/dL (0.0-1.1); POTASSIUM 5.4 mmol/L (3.5-5.1); TOTAL PROTEIN, SERUM 5.3 g/dL (6.4-8.2)
[2016-12-02] MEDS ORDERED: DEXTROSE 50%-WATER 50 ML DISP.SYRIN ONE ×3 (12:50→23:16)
[2016-12-02 12:57] LABS: TROPONIN I 1.113 ng/mL (0.00-0.056)
[2016-12-02] MEDS ORDERED: DEXTROSE 50%-WATER 50 ML DISP.SYRIN IVP ONE ×3 (13:00→23:30)
[2016-12-02 15:02] VITALS: BP 104/60
[2016-12-02 15:39] LABS: BAND % (MANUAL) 1 % (0.0-5.0); EOSINOPHILS % (MANUAL) 1 % (0-4); LYMPHOCYTES % (MANUAL) 9 % (16-48)
[2016-12-02 15:41] LABS: PLATELET ESTIMATE DECREASED; POIKILOCYTOSIS 1+
[2016-12-02 15:42] LABS: ANISOCYTOSIS 1+
[2016-12-02 16:00] VITALS: BP 102/52
[2016-12-02] MEDS ORDERED: NITROGLYCERIN 0.4 MG/TAB BOTTLE SL PRN (16:30)
[2016-12-02] MEDS: GABAPENTIN 100 MG CAPSULE PO SCH (18:31)
[2016-12-02 19:18] VITALS: BP 102/52
[2016-12-02 20:00] VITALS: BP 107/85
[2016-12-02] MEDS: ZOLPIDEM TARTRATE 5 MG TABLET PO SCH (22:00)
[2016-12-02] MEDS: DOXAZOSIN MESYLATE (4 MG) 4 MG TABLET PO SCH (23:07)
[2016-12-02] MEDS: BACLOFEN (10 MG) 10 MG TABLET PO SCH (23:07)
[2016-12-03] VITALS (10 sets, daily range): BP systolic 113–142; BP diastolic 44–62
[2016-12-03] MEDS ORDERED: GLUCAGON,HUMAN RECOMBINANT 1 MG/VIAL VIAL IV ONE
[2016-12-03] MEDS ORDERED: DEXTROSE 10% IN WATER 250 ML BAG IV ONE (00:30)
[2016-12-03] MEDS ORDERED: GLUCAGON,HUMAN RECOMBINANT 1 MG/VIAL VIAL ONE (01:30)
[2016-12-03] MEDS ORDERED: IV D5W 50 ML IV ONE (01:42)
[2016-12-03] MEDS ORDERED: DEXTROSE 10% IN WATER 250 ML IV ONE (02:32)
[2016-12-03] MEDS ORDERED: IV SET PRIMARY PUMP SET 1 EA INFUS.SET MC ONE (02:48)
[2016-12-03] MEDS ORDERED: RENAL NOVASOURCE 1,000 ML BOTTLE GT PRN (03:00)
[2016-12-03] MEDS: BLOOD SUGAR DIAGNOSTIC 1 EACH STRIP IN SCH ×11 (03:51→23:16)
[2016-12-03] MEDS: HYDROGEL DRESSING 90 GM TUBE TP SCH ×2 (09:19→16:43)
[2016-12-03] MEDS: Z GUARD REMEDY 2 OZ OINT TP SCH (09:19)
[2016-12-03] MEDS: CLOPIDOGREL BISULFATE 75 MG TABLET PO SCH (09:20)
[2016-12-03] MEDS: GABAPENTIN 100 MG CAPSULE PO SCH ×2 (09:21→16:15)
[2016-12-03] MEDS: ASPIRIN EC 81 MG TABLET.DR PO SCH (09:21)
[2016-12-03] MEDS: ALLOPURINOL 100 MG TABLET PO SCH (09:24)
[2016-12-03] MEDS: VALSARTAN 80 MG TABLET PO SCH (09:24)
[2016-12-03] MEDS: AMLODIPINE BESYLATE 10 MG TABLET PO SCH (09:24)
[2016-12-03] MEDS: METOPROLOL SUCCINATE 50 MG TAB.SR.24H PO SCH (09:25)
[2016-12-03] MEDS: ISOSORBIDE MONONITRATE (30MG) 30 MG TAB.SR.24H PO SCH (09:25)
[2016-12-03 11:55] LABS: DIFF TOTAL % 100 %; EOSINOPHILS # (AUTO) 0.1 /CMM (0.0-0.7); EOSINOPHILS % (AUTO) 2.2 % (0.0-6.0); HEMATOCRIT 23 % (39-51); HEMOGLOBIN 7.8 g/dL (13.5-17.5); LYMPHOCYTES # (AUTO) 0.6 /CMM (0.8-4.8); LYMPHOCYTES % (AUTO) 10.1 % (20.0-44.0); MEAN CORPUSCULAR HEMOGLOBIN 35 PG (26.0-33.0); MEAN CORPUSCULAR HGB CONC 34 g/dl (31.0-36.0); MEAN CORPUSCULAR VOLUME 102 fL (80-96); MONOCYTES # (AUTO) 0.1 /CMM (0.1-1.30); MONOCYTES % (AUTO) 1.2 % (2.0-12.0); NEUTROPHILS # (AUTO) 4.9 /CMM (1.8-8.9); NEUTROPHILS % (AUTO) 86.5 % (43.0-81.0); RED BLOOD CELL COUNT(AUTO) 2.27 MIL/uL (4.5-6.0); WHITE BLOOD COUNT (AUTO) 5.7 K/uL (4.3-11.0)
[2016-12-03 12:02] LABS: BILIRUBIN,TOTAL 1.3 mg/dL (0.2-1.0); CALCIUM, SERUM 6.9 mg/dL (8.5-10.1); CREATININE 4.2 mg/dL (0.6-1.3); PHOSPHORUS 6.8 mg/dL (2.5-4.9); POTASSIUM 4.2 mmol/L (3.5-5.1); TOTAL PROTEIN, SERUM 4.6 g/dL (6.4-8.2)
[2016-12-03 12:04] LABS: PLATELET COUNT (AUTO) 38 /CMM (150-450)
[2016-12-03 12:06] LABS: ALBUMIN 1.3 g/dL (3.4-5.0)
[2016-12-03 12:30] LABS: BAND % (MANUAL) 2 % (0.0-5.0); EOSINOPHILS % (MANUAL) 4 % (0-4); LYMPHOCYTES % (MANUAL) 6 % (16-48)
[2016-12-03 12:31] LABS: ANISOCYTOSIS 1+; PLATELET ESTIMATE DECREASED
[2016-12-03 12:35] LABS: RBC MORPHOLOGY COMMENT DIMORPHIC RBC MORPH
[2016-12-03] MEDS ORDERED: LIDOCAINE 1%-EPI 1:100,000 20 ML VIAL TP ONE (16:30)
[2016-12-03] MEDS ORDERED: SILVER NITRATE APPLICATOR 1 EA BOX TP ONE ×2 (16:30)
[2016-12-03] MEDS: NEOMY SULF/BACITRAC ZN/POLY 15 GM TUBE TP SCH (16:42)
[2016-12-03] MEDS: ZOLPIDEM TARTRATE 5 MG TABLET PO SCH (21:09)
[2016-12-03] MEDS: BACLOFEN (10 MG) 10 MG TABLET PO SCH (22:15)
[2016-12-03] MEDS: DOXAZOSIN MESYLATE (4 MG) 4 MG TABLET PO SCH (22:16)
[2016-12-04] VITALS: BP 102/52
[2016-12-04] MEDS: BLOOD SUGAR DIAGNOSTIC 1 EACH STRIP IN SCH ×7 (01:10→22:08)
[2016-12-04] MEDS: RENAL NOVASOURCE 1,000 ML BOTTLE GT PRN (02:46)
[2016-12-04 04:00] VITALS: BP 90/52
[2016-12-04 07:26] LABS: CALCIUM, SERUM 6.8 mg/dL (8.5-10.1); CREATININE 4.4 mg/dL (0.6-1.3); POTASSIUM 4.1 mmol/L (3.5-5.1)
[2016-12-04 08:00] VITALS: BP 101/61
[2016-12-04 08:42] LABS: DIFF TOTAL % 100 %; EOSINOPHILS # (AUTO) 0.1 /CMM (0.0-0.7); EOSINOPHILS % (AUTO) 1.6 % (0.0-6.0); HEMATOCRIT 22 % (39-51); HEMOGLOBIN 7.3 g/dL (13.5-17.5); LYMPHOCYTES # (AUTO) 0.7 /CMM (0.8-4.8); LYMPHOCYTES % (AUTO) 12.9 % (20.0-44.0); MEAN CORPUSCULAR HEMOGLOBIN 34 PG (26.0-33.0); MEAN CORPUSCULAR HGB CONC 33 g/dl (31.0-36.0); MEAN CORPUSCULAR VOLUME 104 fL (80-96); MONOCYTES # (AUTO) 0.1 /CMM (0.1-1.30); MONOCYTES % (AUTO) 1.7 % (2.0-12.0); NEUTROPHILS # (AUTO) 4.6 /CMM (1.8-8.9); NEUTROPHILS % (AUTO) 83.8 % (43.0-81.0); RED BLOOD CELL COUNT(AUTO) 2.12 MIL/uL (4.5-6.0); WHITE BLOOD COUNT (AUTO) 5.5 K/uL (4.3-11.0)
[2016-12-04 08:49] LABS: PLATELET COUNT (AUTO) 33 /CMM (150-450)
[2016-12-04] MEDS: VALSARTAN 80 MG TABLET PO SCH (09:00)
[2016-12-04] MEDS: AMLODIPINE BESYLATE 10 MG TABLET PO SCH ×2 (09:00→19:13)
[2016-12-04] MEDS: ISOSORBIDE MONONITRATE (30MG) 30 MG TAB.SR.24H PO SCH ×2 (09:00→19:13)
[2016-12-04] MEDS: METOPROLOL SUCCINATE 50 MG TAB.SR.24H PO SCH ×2 (09:00→19:13)
[2016-12-04] MEDS: CLOPIDOGREL BISULFATE 75 MG TABLET PO SCH (10:11)
[2016-12-04] MEDS: ALLOPURINOL 100 MG TABLET PO SCH (10:11)
[2016-12-04] MEDS: ASPIRIN EC 81 MG TABLET.DR PO SCH (10:11)
[2016-12-04] MEDS: GABAPENTIN 100 MG CAPSULE PO SCH ×2 (10:12→16:54)
[2016-12-04] MEDS: HYDROGEL DRESSING 90 GM TUBE TP SCH ×2 (10:16→10:17)
[2016-12-04] MEDS: NEOMY SULF/BACITRAC ZN/POLY 15 GM TUBE TP SCH (10:17)
[2016-12-04] MEDS: Z GUARD REMEDY 2 OZ OINT TP SCH (10:17)
[2016-12-04 12:00] VITALS: BP 113/59
[2016-12-04] MEDS ORDERED: DEXTROSE 50%-WATER 50 ML DISP.SYRIN IV PRN (12:30)
[2016-12-04] MEDS ORDERED: ALBUMIN 25% 25 GM in PREMIX 1 EA IV ONE (14:30)
[2016-12-04 15:24] LABS: LYMPHOCYTES % (MANUAL) 16 % (16-48)
[2016-12-04 15:25] LABS: PLATELET ESTIMATE DECREASED
[2016-12-04 16:00] VITALS: BP_SYST 113; BP_SYST 120; BP_DIAS 54; BP_DIAS 59
[2016-12-04 17:18] LABS: ABG BASE EXCESS 2.2 mmol/L; ABG HCO3 23.8 mmol/L; ABG PCO2 25.5 mmHg (35.0-45.0); ABG PH 7.588 (7.350-7.450); ABG PO2 109.3 mmHg (75.0-100.0); ABG TOTAL HEMOGLOBIN 7.5 G/dL (13.5-18.0); AaDO2 146.6 mmHg; O2Hb 94.7 % (94.0-97.0)
[2016-12-04 20:00] VITALS: BP 114/62
[2016-12-04] MEDS: BACLOFEN (10 MG) 10 MG TABLET PO SCH (22:04)
[2016-12-04] MEDS: DOXAZOSIN MESYLATE (4 MG) 4 MG TABLET PO SCH (22:04)
[2016-12-05] VITALS (12 sets, daily range): BP systolic 84–122; BP diastolic 41–68
[2016-12-05] MEDS: BLOOD SUGAR DIAGNOSTIC 1 EACH STRIP IN SCH ×6 (00:13→20:13)
[2016-12-05] MEDS: RENAL NOVASOURCE 1,000 ML BOTTLE GT PRN ×2 (05:31→20:17)
[2016-12-05 07:08] LABS: CALCIUM, SERUM 7.5 mg/dL (8.5-10.1); CREATININE 3.4 mg/dL (0.6-1.3); PHOSPHORUS 4.7 mg/dL (2.5-4.9); POTASSIUM 4.3 mmol/L (3.5-5.1)
[2016-12-05 08:05] LABS: BASOPHILS % (AUTO) 0.1 % (0.0-2.0); DIFF TOTAL % 100 %; EOSINOPHILS % (AUTO) 0.8 % (0.0-6.0); LYMPHOCYTES # (AUTO) 0.4 /CMM (0.8-4.8); LYMPHOCYTES % (AUTO) 6.6 % (20.0-44.0); MEAN CORPUSCULAR HEMOGLOBIN 35 PG (26.0-33.0); MEAN CORPUSCULAR HGB CONC 34 g/dl (31.0-36.0); MEAN CORPUSCULAR VOLUME 103 fL (80-96); MONOCYTES # (AUTO) 0.3 /CMM (0.1-1.30); MONOCYTES % (AUTO) 6.2 % (2.0-12.0); NEUTROPHILS # (AUTO) 4.6 /CMM (1.8-8.9); NEUTROPHILS % (AUTO) 86.3 % (43.0-81.0); WHITE BLOOD COUNT (AUTO) 5.3 K/uL (4.3-11.0)
[2016-12-05] MEDS: VALSARTAN 80 MG TABLET PO SCH (08:05)
[2016-12-05] MEDS: AMLODIPINE BESYLATE 10 MG TABLET PO SCH (08:05)
[2016-12-05] MEDS: GABAPENTIN 100 MG CAPSULE PO SCH ×2 (08:05→16:10)
[2016-12-05] MEDS: CLOPIDOGREL BISULFATE 75 MG TABLET PO SCH (08:05)
[2016-12-05] MEDS: HYDROGEL DRESSING 90 GM TUBE TP SCH ×2 (08:06→08:07)
[2016-12-05] MEDS: Z GUARD REMEDY 2 OZ OINT TP SCH (08:06)
[2016-12-05] MEDS: NEOMY SULF/BACITRAC ZN/POLY 15 GM TUBE TP SCH (08:07)
[2016-12-05 08:39] LABS: HEMATOCRIT 20 % (39-51); HEMOGLOBIN 6.6 g/dL (13.5-17.5); RED BLOOD CELL COUNT(AUTO) 1.91 MIL/uL (4.5-6.0)
[2016-12-05 08:40] LABS: PLATELET COUNT (AUTO) 25 /CMM (150-450)
[2016-12-05] MEDS: METOPROLOL SUCCINATE 50 MG TAB.SR.24H PO SCH (09:00)
[2016-12-05] MEDS: ISOSORBIDE MONONITRATE (30MG) 30 MG TAB.SR.24H PO SCH (09:00)
[2016-12-05 11:25] LABS: LYMPHOCYTES % (MANUAL) 15 % (16-48); PLATELET ESTIMATE DECREASED
[2016-12-05] MEDS ORDERED: SECONDARY IV SET 1 EA INFUS.SET MC ONE ×2 (12:24→16:46)
[2016-12-05] MEDS: ALBUMIN 25% 25 GM in PREMIX 1 EA IV PRN (12:53)
[2016-12-05] MEDS ORDERED: FEE PK DOSING 1 MIN EA MC ONE (16:41)
[2016-12-05] MEDS ORDERED: IV SET PRIMARY PUMP SET 1 EA INFUS.SET MC ONE (16:46)
[2016-12-05] MEDS ORDERED: IV NS 0.9% 250 ML IV ONE (16:46)
[2016-12-05] MEDS ORDERED: VANCOMYCIN 1 GM in IV D5W 250 ML IV ONE (17:00)
[2016-12-05] MEDS ORDERED: PIPERACILLIN /TAZOBACTAM 2.25 G in IV D5W 50 ML IV SCH (18:00)
[2016-12-05] MEDS ORDERED: BLOOD IV SET 1 EA INFUS.SET MC ONE (18:31)
[2016-12-05] MEDS: BACLOFEN (10 MG) 10 MG TABLET PO SCH (21:20)
[2016-12-05] MEDS: DOXAZOSIN MESYLATE (4 MG) 4 MG TABLET PO SCH (21:20)
[2016-12-06] VITALS (13 sets, daily range): BP systolic 84–117; BP diastolic 40–62
[2016-12-06] MEDS: BLOOD SUGAR DIAGNOSTIC 1 EACH STRIP IN SCH ×5 (00:44→17:07)
[2016-12-06 07:33] LABS: ALBUMIN 1.8 g/dL (3.4-5.0); BILIRUBIN,TOTAL 1.2 mg/dL (0.2-1.0); CALCIUM, SERUM 7.5 mg/dL (8.5-10.1); CREATININE 3.2 mg/dL (0.6-1.3); PHOSPHORUS 3.7 mg/dL (2.5-4.9); POTASSIUM 3.9 mmol/L (3.5-5.1); TOTAL PROTEIN, SERUM 5.2 g/dL (6.4-8.2)
[2016-12-06 08:13] LABS: BASOPHILS % (AUTO) 0.2 % (0.0-2.0); DIFF TOTAL % 100 %; EOSINOPHILS # (AUTO) 0.2 /CMM (0.0-0.7); EOSINOPHILS % (AUTO) 2.2 % (0.0-6.0); HEMATOCRIT 25 % (39-51); HEMOGLOBIN 8.2 g/dL (13.5-17.5); LYMPHOCYTES # (AUTO) 0.5 /CMM (0.8-4.8); LYMPHOCYTES % (AUTO) 7.4 % (20.0-44.0); MEAN CORPUSCULAR HEMOGLOBIN 33 PG (26.0-33.0); MEAN CORPUSCULAR HGB CONC 34 g/dl (31.0-36.0); MEAN CORPUSCULAR VOLUME 97 fL (80-96); MONOCYTES # (AUTO) 0.7 /CMM (0.1-1.30); MONOCYTES % (AUTO) 9.7 % (2.0-12.0); NEUTROPHILS # (AUTO) 5.8 /CMM (1.8-8.9); NEUTROPHILS % (AUTO) 80.5 % (43.0-81.0); RED BLOOD CELL COUNT(AUTO) 2.53 MIL/uL (4.5-6.0); WHITE BLOOD COUNT (AUTO) 7.3 K/uL (4.3-11.0)
[2016-12-06 08:17] LABS: PLATELET COUNT (AUTO) 17 /CMM (150-450)
[2016-12-06 08:35] LABS: BAND % (MANUAL) 6 % (0.0-5.0); EOSINOPHILS % (MANUAL) 4 % (0-4); LYMPHOCYTES % (MANUAL) 9 % (16-48); PLATELET ESTIMATE DECREASED
[2016-12-06 08:36] LABS: ANISOCYTOSIS 1+
[2016-12-06] MEDS: METOPROLOL SUCCINATE 50 MG TAB.SR.24H PO SCH (09:00)
[2016-12-06] MEDS: VALSARTAN 80 MG TABLET PO SCH (09:00)
[2016-12-06] MEDS: AMLODIPINE BESYLATE 10 MG TABLET PO SCH (09:00)
[2016-12-06] MEDS: ISOSORBIDE MONONITRATE (30MG) 30 MG TAB.SR.24H PO SCH (09:00)
[2016-12-06] MEDS: CLOPIDOGREL BISULFATE 75 MG TABLET PO SCH (09:00)
[2016-12-06] MEDS: GABAPENTIN 100 MG CAPSULE PO SCH ×2 (09:14→17:06)
[2016-12-06] MEDS: NEOMY SULF/BACITRAC ZN/POLY 15 GM TUBE TP SCH (09:15)
[2016-12-06] MEDS: HYDROGEL DRESSING 90 GM TUBE TP SCH ×2 (09:15)
[2016-12-06] MEDS: Z GUARD REMEDY 2 OZ OINT TP SCH (09:16)
[2016-12-06] MEDS ORDERED: Magnesium 1GM/D5W 100ML PREMIX 100 ML IV SCH (12:00)
[2016-12-06] MEDS ORDERED: Magnesium 1GM/D5W 100ML PREMIX 1 G in PREMIX 1 EA IV SCH (12:00)
[2016-12-06] MEDS ORDERED: BLOOD IV SET 1 EA INFUS.SET MC ONE (15:43)
[2016-12-06] MEDS ORDERED: IV NS 0.9% 250 ML IV ONE (15:44)
[2016-12-06] MEDS ORDERED: VANCOMYCIN 500 MG in IV D5W 100 ML IV PRN (17:00)
[2016-12-06] MEDS: RENAL NOVASOURCE 1,000 ML BOTTLE GT PRN (20:30)
[2016-12-06] MEDS: DOXAZOSIN MESYLATE (4 MG) 4 MG TABLET PO SCH (22:00)
[2016-12-06] MEDS: BACLOFEN (10 MG) 10 MG TABLET PO SCH (22:45)
[2016-12-07] VITALS (7 sets, daily range): BP systolic 94–130; BP diastolic 43–67
[2016-12-07] MEDS: BLOOD SUGAR DIAGNOSTIC 1 EACH STRIP IN SCH ×5 (00:22→23:03)
[2016-12-07 07:06] LABS: CALCIUM, SERUM 7.5 mg/dL (8.5-10.1); CREATININE 2.9 mg/dL (0.6-1.3); PHOSPHORUS 2.8 mg/dL (2.5-4.9)
[2016-12-07 07:10] LABS: BASOPHILS % (AUTO) 0.1 % (0.0-2.0); DIFF TOTAL % 100 %; EOSINOPHILS # (AUTO) 0.2 /CMM (0.0-0.7); EOSINOPHILS % (AUTO) 2.7 % (0.0-6.0); HEMATOCRIT 25 % (39-51); HEMOGLOBIN 8.5 g/dL (13.5-17.5); LYMPHOCYTES # (AUTO) 0.7 /CMM (0.8-4.8); LYMPHOCYTES % (AUTO) 9.6 % (20.0-44.0); MEAN CORPUSCULAR HEMOGLOBIN 34 PG (26.0-33.0); MEAN CORPUSCULAR HGB CONC 34 g/dl (31.0-36.0); MEAN CORPUSCULAR VOLUME 101 fL (80-96); MONOCYTES # (AUTO) 0.9 /CMM (0.1-1.30); MONOCYTES % (AUTO) 12.3 % (2.0-12.0); NEUTROPHILS # (AUTO) 5.4 /CMM (1.8-8.9); NEUTROPHILS % (AUTO) 75.3 % (43.0-81.0); RED BLOOD CELL COUNT(AUTO) 2.49 MIL/uL (4.5-6.0); WHITE BLOOD COUNT (AUTO) 7.2 K/uL (4.3-11.0)
[2016-12-07 07:46] LABS: PLATELET COUNT (AUTO) 39 /CMM (150-450)
[2016-12-07] MEDS: GABAPENTIN 100 MG CAPSULE PO SCH (08:02)
[2016-12-07] MEDS: AMLODIPINE BESYLATE 10 MG TABLET PO SCH (08:02)
[2016-12-07] MEDS: Z GUARD REMEDY 2 OZ OINT TP SCH (08:03)
[2016-12-07] MEDS: HYDROGEL DRESSING 90 GM TUBE TP SCH ×2 (08:03)
[2016-12-07] MEDS: NEOMY SULF/BACITRAC ZN/POLY 15 GM TUBE TP SCH (08:04)
[2016-12-07] MEDS: ISOSORBIDE MONONITRATE (30MG) 30 MG TAB.SR.24H PO SCH (09:00)
[2016-12-07 09:25] LABS: ABG BASE EXCESS 3.5 mmol/L; ABG HCO3 27.3 mmol/L; ABG PCO2 38.1 mmHg (35.0-45.0); ABG PH 7.473 (7.350-7.450); ABG PO2 110.5 mmHg (75.0-100.0); ABG TOTAL HEMOGLOBIN 8.5 G/dL (13.5-18.0); AaDO2 130.9 mmHg; O2Hb 94.6 % (94.0-97.0)
[2016-12-07 10:40] LABS: BAND % (MANUAL) 2 % (0.0-5.0); EOSINOPHILS % (MANUAL) 1 % (0-4); LYMPHOCYTES % (MANUAL) 18 % (16-48)
[2016-12-07 10:41] LABS: PLATELET ESTIMATE DECREASED
[2016-12-07] MEDS ORDERED: POTASSIUM CHLORIDE 20 MEQ POWDER PACKET GT ONE (18:00)
[2016-12-07] MEDS: DOXAZOSIN MESYLATE (4 MG) 4 MG TABLET PO SCH (22:00)
[2016-12-07] MEDS: RENAL NOVASOURCE 1,000 ML BOTTLE GT PRN (22:58)
[2016-12-07] MEDS: BACLOFEN (10 MG) 10 MG TABLET PO SCH (22:58)
[2016-12-07] MEDS ORDERED: IV NS 0.9% 250 ML IV ONE (23:16)
[2016-12-08] VITALS: BP 110/63
[2016-12-08 04:00] VITALS: BP 104/73
[2016-12-08] MEDS: BLOOD SUGAR DIAGNOSTIC 1 EACH STRIP IN SCH ×4 (06:07→23:43)
[2016-12-08] MEDS ORDERED: SECONDARY IV SET 1 EA INFUS.SET MC ONE (07:54)
[2016-12-08 08:00] VITALS: BP 94/58
[2016-12-08] MEDS: ISOSORBIDE MONONITRATE (30MG) 30 MG TAB.SR.24H PO SCH (08:22)
[2016-12-08] MEDS: AMLODIPINE BESYLATE 10 MG TABLET PO SCH (08:23)
[2016-12-08] MEDS: HYDROGEL DRESSING 90 GM TUBE TP SCH ×2 (08:31)
[2016-12-08] MEDS: Z GUARD REMEDY 2 OZ OINT TP SCH (08:31)
[2016-12-08] MEDS: NEOMY SULF/BACITRAC ZN/POLY 15 GM TUBE TP SCH (08:31)
[2016-12-08 12:00] VITALS: BP 107/60
[2016-12-08 16:00] VITALS: BP 106/58
[2016-12-08 20:00] VITALS: BP 100/53
[2016-12-08] MEDS: DOXAZOSIN MESYLATE (4 MG) 4 MG TABLET PO SCH (22:00)
[2016-12-08] MEDS: BACLOFEN (10 MG) 10 MG TABLET PO SCH (22:22)
[2016-12-08] MEDS: RENAL NOVASOURCE 1,000 ML BOTTLE GT PRN (22:55)
[2016-12-09] VITALS: BP 110/63
[2016-12-09 04:00] VITALS: BP 104/54
[2016-12-09 06:37] LABS: BASOPHILS % (AUTO) 0.1 % (0.0-2.0); DIFF TOTAL % 100 %; HEMATOCRIT 26 % (39-51); HEMOGLOBIN 8.9 g/dL (13.5-17.5); LYMPHOCYTES # (AUTO) 0.9 /CMM (0.8-4.8); LYMPHOCYTES % (AUTO) 7.7 % (20.0-44.0); MEAN CORPUSCULAR HEMOGLOBIN 34 PG (26.0-33.0); MEAN CORPUSCULAR HGB CONC 34 g/dl (31.0-36.0); MEAN CORPUSCULAR VOLUME 100 fL (80-96); MONOCYTES # (AUTO) 1.5 /CMM (0.1-1.30); MONOCYTES % (AUTO) 12.3 % (2.0-12.0); NEUTROPHILS # (AUTO) 9.4 /CMM (1.8-8.9); NEUTROPHILS % (AUTO) 79.9 % (43.0-81.0); PLATELET COUNT (AUTO) 156 /CMM (150-450); RED BLOOD CELL COUNT(AUTO) 2.64 MIL/uL (4.5-6.0); WHITE BLOOD COUNT (AUTO) 11.8 K/uL (4.3-11.0)
[2016-12-09] MEDS: BLOOD SUGAR DIAGNOSTIC 1 EACH STRIP IN SCH ×3 (06:37→18:22)
[2016-12-09 06:59] LABS: CALCIUM, SERUM 7.5 mg/dL (8.5-10.1); POTASSIUM 3.4 mmol/L (3.5-5.1)
[2016-12-09 08:00] VITALS: BP 107/63
[2016-12-09] MEDS: VIT B CMPLX 3/FA/VIT C/BIOTIN 1 TAB TABLET PO SCH (09:58)
[2016-12-09] MEDS: AMLODIPINE BESYLATE 10 MG TABLET PO SCH (09:59)
[2016-12-09] MEDS: ISOSORBIDE MONONITRATE (30MG) 30 MG TAB.SR.24H PO SCH (10:00)
[2016-12-09] MEDS: HYDROGEL DRESSING 90 GM TUBE TP SCH ×2 (10:00→10:01)
[2016-12-09] MEDS: NEOMY SULF/BACITRAC ZN/POLY 15 GM TUBE TP SCH (10:01)
[2016-12-09] MEDS: Z GUARD REMEDY 2 OZ OINT TP SCH (10:02)
[2016-12-09 12:00] VITALS: BP 108/57
[2016-12-09 16:00] VITALS: BP 114/60
[2016-12-09 20:00] VITALS: BP 111/65
[2016-12-09] MEDS: RENAL NOVASOURCE 1,000 ML BOTTLE GT PRN (22:07)
[2016-12-09] MEDS: DOXAZOSIN MESYLATE (4 MG) 4 MG TABLET PO SCH (22:08)
[2016-12-09] MEDS: BACLOFEN (10 MG) 10 MG TABLET PO SCH (22:09)
[2016-12-10] VITALS: BP 116/59
[2016-12-10] MEDS ORDERED: IV NS 0.9% 250 ML IV ONE (00:05)
[2016-12-10] MEDS: BLOOD SUGAR DIAGNOSTIC 1 EACH STRIP IN SCH ×4 (00:43→17:41)
[2016-12-10 04:00] VITALS: BP 98/60
[2016-12-10 08:00] VITALS: BP 108/55
[2016-12-10] MEDS: AMLODIPINE BESYLATE 10 MG TABLET PO SCH ×2 (09:00→09:06)
[2016-12-10] MEDS: ISOSORBIDE MONONITRATE (30MG) 30 MG TAB.SR.24H PO SCH ×2 (09:00→09:06)
[2016-12-10] MEDS: VIT B CMPLX 3/FA/VIT C/BIOTIN 1 TAB TABLET PO SCH (09:05)
[2016-12-10] MEDS: HYDROGEL DRESSING 90 GM TUBE TP SCH (09:07)
[2016-12-10] MEDS: Z GUARD REMEDY 2 OZ OINT TP SCH (09:07)
[2016-12-10] MEDS: NEOMY SULF/BACITRAC ZN/POLY 15 GM TUBE TP SCH (09:08)
[2016-12-10] MEDS ORDERED: SECONDARY IV SET 1 EA INFUS.SET MC ONE (09:15)
[2016-12-10] MEDS: ALBUMIN 25% 25 GM in PREMIX 1 EA IV PRN (09:40)
[2016-12-10 12:00] VITALS: BP 104/63
[2016-12-10 16:00] VITALS: BP 114/60
[2016-12-10 20:00] VITALS: BP 95/50
[2016-12-10] MEDS: DOXAZOSIN MESYLATE (4 MG) 4 MG TABLET PO SCH (22:00)
[2016-12-10] MEDS: BACLOFEN (10 MG) 10 MG TABLET PO SCH (22:34)
[2016-12-10] MEDS: RENAL NOVASOURCE 1,000 ML BOTTLE GT PRN (22:40)
[2016-12-11] VITALS: BP 99/59
[2016-12-11] MEDS: BLOOD SUGAR DIAGNOSTIC 1 EACH STRIP IN SCH ×4 (01:23→18:19)
[2016-12-11 04:00] VITALS: BP 91/52
[2016-12-11 07:40] LABS: DIFF TOTAL % 100 %; EOSINOPHILS # (AUTO) 0.2 /CMM (0.0-0.7); EOSINOPHILS % (AUTO) 1.7 % (0.0-6.0); HEMATOCRIT 23 % (39-51); HEMOGLOBIN 7.8 g/dL (13.5-17.5); LYMPHOCYTES # (AUTO) 0.9 /CMM (0.8-4.8); LYMPHOCYTES % (AUTO) 6.8 % (20.0-44.0); MEAN CORPUSCULAR HEMOGLOBIN 33 PG (26.0-33.0); MEAN CORPUSCULAR HGB CONC 33 g/dl (31.0-36.0); MEAN CORPUSCULAR VOLUME 100 fL (80-96); MONOCYTES # (AUTO) 1.3 /CMM (0.1-1.30); MONOCYTES % (AUTO) 9.4 % (2.0-12.0); NEUTROPHILS # (AUTO) 11.2 /CMM (1.8-8.9); NEUTROPHILS % (AUTO) 82.1 % (43.0-81.0); PLATELET COUNT (AUTO) 252 /CMM (150-450); RED BLOOD CELL COUNT(AUTO) 2.32 MIL/uL (4.5-6.0); WHITE BLOOD COUNT (AUTO) 13.6 K/uL (4.3-11.0)
[2016-12-11 08:00] VITALS: BP 126/51
[2016-12-11 08:03] LABS: POTASSIUM 3.7 mmol/L (3.5-5.1)
[2016-12-11 08:04] LABS: CALCIUM, SERUM 7.8 mg/dL (8.5-10.1); CREATININE 3.4 mg/dL (0.6-1.3); PHOSPHORUS 3.1 mg/dL (2.5-4.9)
[2016-12-11] MEDS: AMLODIPINE BESYLATE 10 MG TABLET PO SCH (08:50)
[2016-12-11] MEDS: VIT B CMPLX 3/FA/VIT C/BIOTIN 1 TAB TABLET PO SCH (08:50)
[2016-12-11] MEDS: ISOSORBIDE MONONITRATE (30MG) 30 MG TAB.SR.24H PO SCH (08:51)
[2016-12-11] MEDS: HYDROGEL DRESSING 90 GM TUBE TP SCH (08:52)
[2016-12-11] MEDS: NEOMY SULF/BACITRAC ZN/POLY 15 GM TUBE TP SCH (08:52)
[2016-12-11 09:19] LABS: ANISOCYTOSIS 1+; BAND % (MANUAL) 9 % (0.0-5.0); EOSINOPHILS % (MANUAL) 2 % (0-4); LYMPHOCYTES % (MANUAL) 11 % (16-48); METAMYELOCYTES % 3 % (0-0); MYELOCYTES % 2 % (0-0); PLATELET ESTIMATE ADEQUATE
[2016-12-11 09:25] LABS: POLYCHROMASIA 2+
[2016-12-11] MEDS ORDERED: ACETAMINOPHEN 650 MG/20.3 ML UDC GT PRN (11:30)
[2016-12-11] MEDS: Z GUARD REMEDY 2 OZ OINT TP SCH (11:34)
[2016-12-11 12:00] VITALS: BP 121/52
[2016-12-11] MEDS ORDERED: SECONDARY IV SET 1 EA INFUS.SET MC ONE (12:20)
[2016-12-11] MEDS ORDERED: IV NS 0.9% 2,000 ML ONE (12:22)
[2016-12-11] MEDS: ALBUMIN 25% 25 GM in PREMIX 1 EA IV PRN ×2 (12:27→13:00)
[2016-12-11] MEDS ORDERED: ALBUMIN 25% 25 GM in PREMIX 1 EA IV PRN (13:00)
[2016-12-11] MEDS ORDERED: IV NS 0.9% 1,000 ML BAG IV PRN (13:00)
[2016-12-11] MEDS ORDERED: ALBUTEROL HALF STRENGTH 1.25 MG/3 ML VIAL.NEB NEB SCH (13:30)
[2016-12-11] MEDS ORDERED: IPRATROPIUM NEB FS 0.5 MG/2.5 ML AMPUL.NEB NEB SCH (13:30)
[2016-12-11] MEDS ORDERED: ALBUTEROL FS 2.5 MG/3 ML VIAL.NEB NEB SCH (13:30)
[2016-12-11 16:00] VITALS: BP 104/50
[2016-12-11] MEDS ORDERED: MORPHINE SULFATE INJ 4 MG/ML DISP.SYRIN IV STA (18:06)
[2016-12-11] MEDS ORDERED: MORPHINE SULFATE PF DRIP 250 MG in IV D5W 240 ML IV PRN (18:30)
[2016-12-11 20:00] VITALS: BP 92/54
[2016-12-11] MEDS ORDERED: GENTAMICIN 80 MG in IV D5W 50 ML IV SCH (21:00)
[2016-12-11] MEDS ORDERED: SET PCA INFUSE SET 1 EA INFUS.SET MC ONE (21:32)
[2016-12-11] MEDS ORDERED: IV SET PRIMARY PUMP SET 1 EA INFUS.SET MC ONE (21:33)
[2016-12-11] MEDS ORDERED: IV NS 0.9% 250 ML IV ONE (21:33)
[2016-12-12] VITALS: BP 93/59
[2016-12-12 04:00] VITALS: BP 68/39
[2016-12-12 10:23] LABS: KETONES,URINE NEGATIVE (NEGATIVE); LEUKOCYTE ESTERASE ,URINE 2+ (NEGATIVE)
[2016-12-12 10:45] LABS: ADD UA MICROSCOPIC YES
[2016-12-12 11:03] LABS: ADD URINE CULTURE YES; RBC,URINE 15-20 /HPF (0-2); WBC,URINE TOO NUMEROUS TO COUN /HPF (0-3)
== END 2016-12-12 06:09 | disposition expired ==
LOC: ER 12:05 → EDBD 12:05 → TELE1 13:52
PROVIDERS: ADMIT Nurse Practitioner Acute Care; ATTEND Nurse Practitioner Acute Care
PROC: 5A1955Z Respiratory Ventilation, Greater than 96 Consecutive Hours (ICD-10-PCS; principal; 2016-12-02)
PROC: 5A1D60Z (ICD-10-PCS; 2016-12-02)
PROC: 30233N1 Transfusion of Nonautologous Red Blood Cells into Peripheral Vein, Percutaneous Approach (ICD-10-PCS; 2016-12-05)
PROC: 30233R1 Transfusion of Nonautologous Platelets into Peripheral Vein, Percutaneous Approach (ICD-10-PCS; 2016-12-06)
DX: T82.7XXA Infection and inflammatory reaction due to other cardiac and vascular devices, implants and grafts, initial encounter (principal); I21.4 Non-ST elevation (NSTEMI) myocardial infarction; N18.6 End stage renal disease; R53.2 Functional quadriplegia; E43 Unspecified severe protein-calorie malnutrition; I50.23 Acute on chronic systolic (congestive) heart failure; J18.9 Pneumonia, unspecified organism; J96.21 Acute and chronic respiratory failure with hypoxia; G93.41 Metabolic encephalopathy; L89.154 Pressure ulcer of sacral region, stage 4; R65.20 Severe sepsis without septic shock; J90 Pleural effusion, not elsewhere classified; Z51.5 Encounter for palliative care; D68.59 Other primary thrombophilia; N17.9 Acute kidney failure, unspecified; E87.2 Acidosis; I13.2 Hypertensive heart and chronic kidney disease with heart failure and with stage 5 chronic kidney disease, or end stage renal disease; Z99.11 Dependence on respirator [ventilator] status; Y84.9 Medical procedure, unspecified as the cause of abnormal reaction of the patient, or of later complication, without mention of misadventure at the time of the procedure; D63.8 Anemia in other chronic diseases classified elsewhere; D69.6 Thrombocytopenia, unspecified; I25.10 Atherosclerotic heart disease of native coronary artery without angina pectoris; I48.0 Paroxysmal atrial fibrillation; N40.0 Benign prostatic hyperplasia without lower urinary tract symptoms; R13.10 Dysphagia, unspecified; Z99.2 Dependence on renal dialysis; E11.22 Type 2 diabetes mellitus with diabetic chronic kidney disease; K21.9 Gastro-esophageal reflux disease without esophagitis; K74.60 Unspecified cirrhosis of liver; I71.4 Abdominal aortic aneurysm, without rupture; I71.2 Thoracic aortic aneurysm, without rupture; Z93.1 Gastrostomy status; L89.320 Pressure ulcer of left buttock, unstageable; L89.310 Pressure ulcer of right buttock, unstageable; L98.9 Disorder of the skin and subcutaneous tissue, unspecified; L53.9 Erythematous condition, unspecified; S81.802A Unspecified open wound, left lower leg, initial encounter; S81.801A Unspecified open wound, right lower leg, initial encounter; X58.XXXA Exposure to other specified factors, initial encounter; Y93.9 Activity, unspecified; Y92.89 Other specified places as the place of occurrence of the external cause; Y99.9 Unspecified external cause status; D50.9 Iron deficiency anemia, unspecified; Z93.0 Tracheostomy status; E11.649 Type 2 diabetes mellitus with hypoglycemia without coma; Z98.61 Coronary angioplasty status; S41.102A Unspecified open wound of left upper arm, initial encounter; S41.101A Unspecified open wound of right upper arm, initial encounter; L89.899 Pressure ulcer of other site, unspecified stage; I25.2 Old myocardial infarction
CPT/HCPCS: 31720; 36415; 36600; 71010-TC; 80048-TC; 80053-TC; 80076-TC; 81000-TC; 82962-TC; 83735-TC; 83880; 84100-TC; 84484-TC; 85025-TC; 85730-TC; 86850-TC; 86901; 86921-TC; 87040-TC; 87081-TC; 87086-TC; 87186-TC; 90935-TC; 94002-TC; 94003-TC; A4216; A4606; A6248; A6253; A6402; A6403; J1610; J2270; J2274; J2543; J3370; J3475; J3490; J7030; J7050; J7060; P9016-BL; P9034-BL; P9047; Z7610